=== PATIENT | female | born 1960 | race Caucasian/White ===

== ENCOUNTER 2017-05-08 16:03 | Inpatient (IN) | payer MEDICAID, SELFPAY | END 2017-05-12 09:05 | disposition home or self-care (01) | DRG 194 | PROVIDERS: Admitting Provider Internal Medicine Adolescent Medicine; Emergency Provider Emergency Medicine; Family Provider Family Medicine; Visit Provider Internal Medicine Adolescent Medicine | DX: J44.0 Chronic obstructive pulmonary disease with (acute) lower respiratory infection (principal); J14 Pneumonia due to Hemophilus influenzae; J44.1 Chronic obstructive pulmonary disease with (acute) exacerbation; Z72.0 Tobacco use; E11.9 Type 2 diabetes mellitus without complications; F10.20 Alcohol dependence, uncomplicated | CPT/HCPCS: 36415; 71010; 80048; 80053; 80202; 82962; 83605; 83880; 85025; 87040; 87070; 87184; 87205; 94640; 94760; 96365; 96367; 96375; 99284; J3370 ==

== ENCOUNTER 2017-11-07 18:23 | Observation (INO) ==
--- NOTE | 2017-11-07 19:18 | Emergency Department Note ---
ED Disposition Clinical Impression: COPD exacerbation, Elevated troponin Disposition: Still a Patient Condition on Discharge: Good Referrals: Rodolfo Mejia MD [Primary Care Provider] - - Critical Care Critical Care Time: No Attestation: On 11/07/17, the high probability of a clinically significant, sudden or life threatening deterioration of the following system(s) required my full and direct attention, intervention and personal management. The time I documented below is in addition to time spent performing reported procedures but includes the following listed in this critical care notation. Medical Decision Making - Fran Inquiry Pt receiving controlled substance: No Vital Signs: 11/07/17 18:30 11/07/17 18:43 11/07/17 19:16 Temperature 98.6 F 98.6 F Temperature Source Oral Oral Pulse Rate Pulse Rate [Right Radial] 99 H 95 H 89 Respiratory Rate 26 H 18 22 Blood Pressure [Right Arm] 142/79 123/71 115/70 Blood Pressure Mean [Right Arm] 100 88 85 Blood Pressure Source [Right Arm] Automatic Cuff Automatic Cuff Blood Pressure Position [Right Arm] Supine Sitting 02 Sat by Pulse Oximetry 95 95 94 L Oxygen Delivery Method Room Air Room Air Room Air 11/07/17 20:29 Temperature Temperature Source Pulse Rate 87 Pulse Rate [Right Radial] Respiratory Rate Blood Pressure [Right Arm] Blood Pressure Mean [Right Arm] Blood Pressure Source [Right Arm] Blood Pressure Position [Right Arm] 02 Sat by Pulse Oximetry Oxygen Delivery Method - Lab Data Lab Results 11/07/17 19:00: WBC 7.1, RBC 3.76 L, Hgb 11.6 L, Hct 35.2 L, MCV 93.5, MCH 30.8 , MCHC 33.0, RDW 13.1, Plt Count 238, MPV 7.5, Neut % (Auto) 59.2, Lymph % (Auto ) 32.7, Whitman % (Auto) 4.1, Eos % (Auto) 3.6, Baso % (Auto) 0.3, Neut # (Auto) 4.2, Lymph # (Auto) 2.3, Whitman # (Auto) 0.3, Eos # (Auto) 0.3, Baso # (Auto) 0.0 11/07/17 19:00: Sodium 132 L, Potassium 4.3, Chloride 97 L, Carbon Dioxide 27, Anion Gap 12.3, BUN 15, Creatinine 0.84, Estimated Creat Clear 78, Estimated GFR 69, Est GFR ( Amer) 84, Glucose 110 H, Calcium 9.5, Total Bilirubin 0.2, AST 29, ALT 30, Alkaline Phosphatase 85, Total Creatine Kinase 89, CK-MB ( CK-2) 1.5, CK-MB (CK-2) Rel Index 1.7, Troponin I 0.10 H, Total Protein 7.3, Albumin 3.4, Globulin 3.9 H, Albumin/Globulin Ratio 0.9 L 11/07/17 19:00: Lactic Acid 1.6 Result diagrams: 11/07/17 19:00 11/07/17 19:00 Orders (Tests/Meds): ED MEDICATIONS Discontinued Medications Generic Name Dose Route Start Last Admin Trade Name Freq PRN Reason Stop Dose Admin Albuterol/Ipratropium 3 ml 11/07/17 20:19 11/07/17 20:29 Duoneb 3ml Neb IH 11/07/17 20:20 3 ml ONCE ONE Administration Aspirin 324 mg 11/07/17 20:19 11/07/17 20:33 Aspirin 81mg Chewable Tablet PO 11/07/17 20:20 324 mg ONCE ONE Administration Methylprednisolone Sodium Succinate 125 mg 11/07/17 20:19 11/07/17 20:34 Solu-Medrol 125mg/2ml Vial IV 11/07/17 20:20 125 mg ONCE ONE Administration ORDERS Category Date Time Status Blood Culture Stat Micro 11/07/17 19:00 Received - Radiology Data #1 Image(s): Chest Image Reviewed: Yes I reviewed the patient's radiology image Chronic interstitial changes. No acute infiltrate. No change from prior. - ECG Data Tracing #1 EKG interpreted by Blair Baker MD: Rhythm: sinus Rate: 94 [place]: Left Ectopy: none Conduction: normal ST Segment Changes: none T Wave Changes: none Q Waves: none Poor R-wave progression Low voltage QRS No evidence of acute ischemia or injury Medical Decision Narrative: 8:00 PM: Troponin elevated. Prior troponins have been normal. Spoke with patient. She denies any chest discomfort except for a feeling of tightness in her airways with breathing. Denies any chest pressure or discomfort. States no history of cardiac disease and does not have a operator specialist communications, has not seen a operator specialist communications in the past. I have discussed the case with Dr. Casas for Dr. Mejia who agrees to admit the patient to the hospital. We discussed the patient's clinical information, including history, exam, laboratory and radiology results and ED course. Per hospital procedure, I will write temporary bridge inpatient orders on the patient. Specific orders requested by the admitting physician: Serial cardiac enzymes General Adult HPI - General Chief complaint: Shortness of Breath/Dyspnea Stated complaint: SOA Time Seen by Provider: 11/07/17 19:16 Mode of Arrival: Ambulatory Limitations: No Limitations Description of Symptoms (Recalled from ER Triage Doc. by RN): soa for three days and chest tightness - History of Present Illness HPI narrative: The patient says her COPD is acting up. For about 3 days she has had increased shortness of breath, wheezing. She says her cough is not changed in frequency and she is not producing sputum. No fever. Denies chest pain, says he just feels tight "from that stuff down in there". She is a smoker. She is not on home oxygen. She does use a nebulizer 4 times a day, states has had 4 treatments today. She is on prednisone 5 mg a day. She uses a Brio and Combivent inhalers. States that she could not get in to see her doctor while he was open, PCP is Dr. Mejia. - Related Data Home Medications Medication Instructions Recorded Confirmed albuterol sulfate 2.5 mg/3 mL CONTINUOUS NEBULIZATION 30 Days 09/11/17 (0.083 %) solution for nebulization #360 blood sugar diagnostic strips See Dose Instructions .ROUTE 09/11/17 .MEDSUPPLY 30 Days #50 each diazepam 10 mg tablet PO 30 Days #90 09/11/17 digoxin 250 mcg tablet PO 30 Days #30 09/11/17 fluticasone 100 mcg-vilanterol 25 INHALATION 30 Days #60 09/11/17 mcg/dose powder for inhalation fluticasone 200 mcg-vilanterol 25 1 inh INHALATION Q24H 09/11/17 mcg/dose powder for inhalation fluticasone 50 mcg/actuation nasal INTRANASAL 30 Days #16 09/11/17 spray,suspension furosemide 80 mg tablet 80 mg PO ONCE 09/11/17 insulin glargine (U-300) 300 SUB-Q 23 Days #9 09/11/17 unit/mL (1.5 mL) subcutaneous pen insulin lispro (U-100) 100 unit/mL SUB-Q 30 Days #15 09/11/17 subcutaneous pen ipratropium 20 mcg-albuterol 100 INHALATION 30 Days #4 09/11/17 mcg/actuation mist for inhalation metoclopramide 5 mg tablet PO 30 Days #120 09/11/17 pantoprazole 40 mg tablet,delayed PO 30 Days #30 09/11/17 release paroxetine 30 mg tablet PO 30 Days #30 09/11/17 promethazine 25 mg tablet PO 30 Days #60 09/11/17 tramadol 50 mg tablet 50 mg PO Q4-6H PRN 09/11/17 umeclidinium 62.5 mcg/actuation INHALATION 30 Days #30 09/11/17 blister powder for inhalation Allergies Allergy/AdvReac Type Severity Reaction Status Date / Time amoxicillin [AMOXICILLIN] Allergy Intermediate I-RASH Verified 11/07/17 18:37 azithromycin [AZITHROMYCIN] Allergy Intermediate I-RASH Verified 11/07/17 18:37 doxycycline [DOXYCYCLINE] Allergy Intermediate I-RASH Verified 11/07/17 18:37 levofloxacin [LEVOFLOXACIN] Allergy Intermediate NA-NAUSEA/V Verified 11/07/17 18:37 OMITING Penicillins [PENICILLINS] Allergy Intermediate I-RASH Verified 11/07/17 18:37 propoxyphene [PROPOXYPHENE] Allergy Intermediate NA-NAUSEA/V Verified 11/07/17 18:37 OMITING Sulfa (Sulfonamide Allergy Intermediate NA-NAUSEA/V Verified 11/07/17 18:37 Antibiotics) OMITING [SULFA (SULFONAMIDE ANTIBIOTICS)] trimethoprim [TRIMETHOPRIM] Allergy Intermediate NA-NAUSEA/V Verified 11/07/17 18:37 OMITING ibuprofen [IBUPROFEN] Allergy Mild NA-NAUSEA/V Verified 11/07/17 18:37 OMITING Quinolones [QUINOLONES] Allergy Unknown Verified 11/07/17 18:37 sulfamethoxazole Allergy Unknown Verified 11/07/17 18:37 [SULFAMETHOXAZOLE] [facility] History I have reviewed the patient's past medical history: Yes Medical History: Reports:: Chronic Obstructive Pulmonary Disease (COPD), Diabetes Mellitus Type 1 Denies:: Cancer, Diabetes Mellitus Type 2, Hyperlipidemia, Hypertension, MRSA Other Surgeries: Yes: Tubal Ligation Amputation: No Fractures: No - Social History Smoking Status: Current every day smoker Tobacco Type: cigarettes # Packs/Day (cigarettes): 2 #Yrs smoked (if former smoker): 0 Alcohol Intake: current Alcohol Intake Frequency:: 0-2 drinks per day Substance Use Type: denies use - Psychiatric History Expresses thoughts of harming self/others: None Suicide Plan Description: No Plan Family Hx:: Non-contributory ROS Obtained: Yes All systems reviewed & no additional complaints - Cardiovascular Cardiovascular: Denies chest pain, Denies leg edema - Respiratory Respiratory: Yes chest congestion, No cough, Yes dyspnea, No coughing up blood - Gastrointestinal Gastrointestingal: Denies: diarrhea, vomiting Physical Exam - General General appearance: alert, in no apparent distress - Head Head exam: atraumatic, normocephalic, normal inspection - Eye Eye exam: Present: normal appearance, PERRL, EOMI - ENT ENT exam: Present: normal exam, normal oropharynx, mucous membranes moist, TM's normal bilaterally, normal external ear exam - Neck Neck exam: Present: normal inspection, full ROM, trachea midline. Absent: meningismus, lymphadenopathy - Chest Chest inspection: Present: normal inspection, symmetric chest wall rise. Absent : tenderness - Respiratory Respiratory exam: Present: wheezes. Absent: respiratory distress - Cardiovascular Cardiovascular exam: Present: regular rate, normal rhythm. Absent: JVD - Abdominal Exam Abdominal exam: Present: soft, normal bowel sounds. Absent: distention, tenderness, guarding - Extremities Exam Extremities exam: Present: normal inspection, full ROM, normal capillary refill. Absent: calf tenderness - Back Exam Back exam: Present: normal inspection. Absent: tenderness - Neurological Exam Neurological exam: Present: alert, oriented X3 - Psychiatric Psychiatric exam: Present: normal affect, normal mood - Skin Skin exam: Present: warm, dry, intact, normal color - Lymphatic Lymphatic Findings: no adenopathy
[2017-11-07 19:22] LABS: Basophils % 0.3 % (0.1-2.0); Eosinophils # 0.3 K/mm3 (0.0-0.4); Eosinophils % 3.6 % (0.1-12.0); Hematocrit 35.2 % (37.0-47.0); Hemoglobin 11.6 g/dL (12.2-16.2); Lymphocytes # 2.3 K/mm3 (0.7-4.5); Lymphocytes % 32.7 K/mm3 (10-50); Mean Corpuscular Hemoglobin 30.8 pg (27.0-31.2); Mean Corpuscular Volume 93.5 fl (81-99); Mean Platelet Volume 7.5 fl (7.4-10.4); Monocytes # 0.3 K/mm3 (0.1-1.0); Monocytes % 4.1 % (1.7-9.3); Neutrophils # 4.2 K/mm3 (1.8-7.8); Neutrophils % 59.2 % (37.0-80.0); Platelet Count 238 K/mm3 (142-424); Red Blood Count 3.76 M/mm3 (4.20-5.40); Red Cell Distribution Width 13.1 % (11.5-17.5); White Blood Count 7.1 K/mm3 (4.8-10.8)
[2017-11-07 19:43] LABS: Albumin Level 3.4 gm/dL (3.4-5.0); Albumin/Globulin Ratio 0.9 (1.1-1.8); Anion Gap 12.3 mEq/L (5-15); Bilirubin,Total 0.2 mg/dL (0.2-1.0); Calcium 9.5 mg/dL (8.5-10.1); Globulin 3.9 gm/dl (1.3-3.2); Potassium 4.3 mmoL/L (3.5-5.1); Total Protein,Serum 7.3 gm/dL (6.4-8.2)
--- NOTE | 2017-11-08 06:27 | H&P/Discharge Summary ---
General - General Admission date: 11/07/17 Discharge date: 11/08/17 *Admission Date: 11/07/17 *Chief complaint: Cough and chest congestion *History of present illness: 57-year-old female with history of COPD and diabetes presented to the emergency department with 3 days of cough and increasing chest congestion. Workup was rather unremarkable except for a troponin in the indeterminate range. Once this was discovered patient was questions further on her symptoms and she repeatedly denied chest pain, chest heaviness, discomfort in the jaw or neck, discomfort radiating into the left arm. Because of the abnormal troponin she was admitted for a mild COPD exacerbation and kept overnight for serial troponins. She denies fevers, chills, abdominal pain, back pain. [facility] History Medical History: Reports:: Congestive Heart Failure, Chronic Obstructive Pulmonary Disease (COPD), Diabetes Mellitus Type 2, Hyperlipidemia Denies:: Cancer, Hypertension, MRSA Other Medical History: Reports: Sinus Problems Laterality Cases: Left: Partial Knee Replacement Other Surgeries: Yes: Colonoscopy, Tubal Ligation, Other (LEFT KNEE) Amputation: No Fractures: No - *Social History Educational Level: Attended High School Smoking Status: Current every day smoker Tobacco Type: cigarettes # Packs/Day (cigarettes): 1 #Yrs smoked (if former smoker): 0 Alcohol Intake: current Alcohol Intake Frequency:: 0-2 drinks per day Substance Use Type: denies use Occupational Status: employed, disabled Housing: house Household Members: family - Psychiatric History Expresses thoughts of harming self/others: None Suicide Plan Description: No Plan *Family Hx:: Asthma, Cancer, Coronary Artery Disease, Diabetes, Heart Attack, Hyperlipidemia, Hypertension, Stroke, Thyroid Disorder Review of Systems - Review of Systems Review of systems:: pertinent systems reviewed and negative unless documented below Exam Vital signs and Labs for Last 24 Hours: Temp Pulse Resp BP Pulse Ox 98.5 F 90 20 108/52 90 L 11/08/17 04:00 11/08/17 04:00 11/08/17 04:00 11/08/17 04:00 11/08/17 04:00 Laboratory Results - last 24 hr 11/07/17 22:58: POC Glucose 215 H 11/08/17 00:25: Troponin I 0.07 H 11/08/17 04:10: Troponin I 0.06 I & O for Last 24 hours: Intake & Output 04/11/06/17 11/07/17 11/08/17 11:59 11:59 11:59 11:59 Weight 158 lb 7 oz Narrative: Female appears older than her stated age. Oropharynx is moist and she is edentulous. Neck is without lymphadenopathy or carotid bruits. Lungs this morning had faint expiratory wheezes without rales. Heart has a regular rate and rhythm. Abdomen is soft, nontender, nondistended. Extremities are without edema. Hospital Course Hospital Course: She was admitted and had serial troponins performed overnight which gradually trended down. Because her troponins trended down she was discharged home the following morning and will follow up in my office on November 13. She will be treated for COPD exacerbation as an outpatient. Outpatient stress testing will be performed in the future Results Labs on day of discharge: Labs from last 24 hours 11/08/17 11/08/17 11/07/17 04:10 00:25 22:58 POC Glucose 215 H Troponin I 0.06 0.07 H DS: Diagnosis - Discharge Diagnosis (1) COPD exacerbation Status: Acute (2) Elevated troponin Status: Acute Discharge Medications Discharge Medications: Home Medications Medication Instructions Recorded Confirmed Type albuterol sulfate 2.5 mg/3 mL CONTINUOUS NEBULIZATION 30 Days 09/11/17 History (0.083 %) solution for nebulization #360 blood sugar diagnostic strips See Dose Instructions .ROUTE 09/11/17 History .MEDSUPPLY 30 Days #50 each diazepam 10 mg tablet PO 30 Days #90 09/11/17 History digoxin 250 mcg tablet PO 30 Days #30 09/11/17 History fluticasone 100 mcg-vilanterol 25 INHALATION 30 Days #60 09/11/17 History mcg/dose powder for inhalation fluticasone 200 mcg-vilanterol 25 1 inh INHALATION Q24H 09/11/17 History mcg/dose powder for inhalation fluticasone 50 mcg/actuation nasal INTRANASAL 30 Days #16 09/11/17 History spray,suspension furosemide 80 mg tablet 80 mg PO ONCE 09/11/17 History insulin glargine (U-300) 300 SUB-Q 23 Days #9 09/11/17 History unit/mL (1.5 mL) subcutaneous pen insulin lispro (U-100) 100 unit/mL SUB-Q 30 Days #15 09/11/17 History subcutaneous pen ipratropium 20 mcg-albuterol 100 INHALATION 30 Days #4 09/11/17 History mcg/actuation mist for inhalation metoclopramide 5 mg tablet PO 30 Days #120 09/11/17 History pantoprazole 40 mg tablet,delayed PO 30 Days #30 09/11/17 History release paroxetine 30 mg tablet PO 30 Days #30 09/11/17 History promethazine 25 mg tablet PO 30 Days #60 09/11/17 History tramadol 50 mg tablet 50 mg PO Q4-6H PRN 09/11/17 History umeclidinium 62.5 mcg/actuation INHALATION 30 Days #30 09/11/17 History blister powder for inhalation Disposition Disposition: Home, Self-Care
== END 2017-11-08 08:50 | disposition home or self-care (01) ==
LOC: 2ND 18:23 → ER 18:23 → 2ND 22:54
PROVIDERS: ADMIT Emergency Medicine; ATTEND Family Medicine

== ENCOUNTER 2018-05-24 17:23 | Inpatient (IN) ==
[2018-05-24 18:23] LABS: Basophils % 0.2 % (0.1-2.0); Eosinophils # 0.3 K/mm3 (0.0-0.4); Eosinophils % 1.5 % (0.1-12.0); Hematocrit 43.2 % (37.0-47.0); Hemoglobin 13.8 g/dL (12.2-16.2); Lymphocytes # 2.2 K/mm3 (0.7-4.5); Lymphocytes % 13.2 K/mm3 (10-50); Mean Corpuscular HGB Conc 31.9 g/dL (31.8-35.4); Mean Corpuscular Hemoglobin 31.4 pg (27.0-31.2); Mean Corpuscular Volume 98.4 fl (81-99); Mean Platelet Volume 7.5 fl (7.4-10.4); Monocytes # 0.4 K/mm3 (0.1-1.0); Monocytes % 2.6 % (1.7-9.3); Neutrophils # 13.8 K/mm3 (1.8-7.8); Neutrophils % 82.5 % (37.0-80.0); Platelet Count 152 K/mm3 (142-424); Red Blood Count 4.39 M/mm3 (4.20-5.40); Red Cell Distribution Width 13.6 % (11.5-17.5); White Blood Count 16.7 K/mm3 (4.8-10.8)
[2018-05-24 18:26] LABS: Acetone, Serum (Rapid) None Detected (None Detect)
[2018-05-24 18:34] LABS: Alanine Aminotransferase 22 U/L (12-78); Albumin Level 3.3 gm/dL (3.4-5.0); Albumin/Globulin Ratio 0.9 (1.1-1.8); Alkaline Phosphatase 75 U/L (46-116); Amylase 55 U/L (25-125); Anion Gap 16.5 mEq/L (5-15); Aspartate Amino Transferase 21 U/L (15-37); Bilirubin,Total 0.6 mg/dL (0.2-1.0); Blood Urea Nitrogen 24 mg/dL (7-18); Calcium 8.8 mg/dL (8.5-10.1); Carbon Dioxide 23 mmol/L (21.0-32.0); Chloride 98 mmol/L (98-107); Globulin 3.8 gm/dl (1.3-3.2); Glucose 75 mg/dL (74-106); Lipase 52 u/L (73-393); Potassium 5.5 mmoL/L (3.5-5.1); Sodium 132 mmol/L (136-145); Total Protein,Serum 7.1 gm/dL (6.4-8.2)
[2018-05-24 18:42] LABS: Eosinophils % 2 % (0-3); Lymphocytes % 13 % (10-50); Monocytes % 6 % (2-9); Neutrophils % 70 % (42-76); RBC Morphology Normal; Total Cells Counted 100
[2018-05-24 19:23] LABS: VBG Base Excess -5.6 mmol/L (-2.4-2.3); VBG HCO3 21.7 mmol/L (23-30); VBG Oxygen Saturation 57.3 % (50-70); VBG PH 7.25 mmol/L (7.31-7.41); VBG PO2 32.8 mmol/L (28-40); VBG Total CO2 23.2 mmol/L (23-27)
--- NOTE | 2018-05-24 19:30 | Emergency Department Note ---
ED Disposition Clinical Impression: Septic shock Community acquired pneumonia Qualifiers: Laterality: left Lung location: lower lobe of lung Qualified Code(s): J18.1 - Lobar pneumonia, unspecified organism Disposition: Still a Patient Condition on Discharge: Serious Referrals: Rodolfo Mejia MD [Primary Care Provider] - - Critical Care Critical Care Time: Yes Attestation: On 05/24/18, the high probability of a clinically significant, sudden or life threatening deterioration of the following system(s) required my full and direct attention, intervention and personal management. The time I documented below is in addition to time spent performing reported procedures but includes the following listed in this critical care notation. Total Critical Care Time: 40 Vital system(s) involved:: Shock (Septic) My critical care processes included: Assessment & monitoring of V/S, Initial and Re-exams, Data Review/Interpretation, Coordinating Care, Medication Orders and management, Documentation Medical Decision Making - Fran Inquiry Pt receiving controlled substance: No Vital Signs: 05/24/18 17:26 05/24/18 17:56 05/24/18 20:02 Temperature 97.9 F Temperature Source Oral Pulse Rate [Left Radial] 89 116 H 120 H Respiratory Rate 22 15 Blood Pressure [Right Arm] 119/103 H 86/45 L 77/48 L Blood Pressure Mean [Right Arm] 108 58 57 Blood Pressure Source [Right Arm] Automatic Cuff Automatic Cuff Blood Pressure Position [Right Arm] Supine Supine 02 Sat by Pulse Oximetry 96 95 91 L Oxygen Delivery Method Room Air Room Air Oxygen Flow Rate (LPM) 05/24/18 20:08 05/24/18 20:30 05/24/18 21:21 Temperature 99.1 F Temperature Source Oral Pulse Rate [Left Radial] 120 H 126 H Respiratory Rate 15 16 Blood Pressure [Right Arm] 90/47 L 121/44 L Blood Pressure Mean [Right Arm] 61 69 Blood Pressure Source [Right Arm] Manual Cuff/ Auscultation Automatic Cuff Blood Pressure Position [Right Arm] Supine 02 Sat by Pulse Oximetry 92 L 94 L Oxygen Delivery Method Nasal Cannula Nasal Cannula Oxygen Flow Rate (LPM) 2 2 05/24/18 21:30 Temperature Temperature Source Pulse Rate [Left Radial] 128 H Respiratory Rate 18 Blood Pressure [Right Arm] 101/62 L Blood Pressure Mean [Right Arm] 75 Blood Pressure Source [Right Arm] Automatic Cuff Blood Pressure Position [Right Arm] Supine 02 Sat by Pulse Oximetry 96 Oxygen Delivery Method Nasal Cannula Oxygen Flow Rate (LPM) 2 - Lab Data Lab Results 05/24/18 18:05: WBC 16.7 H, RBC 4.39, Hgb 13.8, Hct 43.2, MCV 98.4, MCH 31.4 H, MCHC 31.9, RDW 13.6, Plt Count 152, MPV 7.5, Neut % (Auto) 82.5 H, Lymph % (Auto) 13.2, [place] % (Auto) 2.6, Eos % (Auto) 1.5, Baso % (Auto) 0.2, Neut # (Au to) 13.8 H, Lymph # (Auto) 2.2, [place] # (Auto) 0.4, Eos # (Auto) 0.3, Baso # (Auto) 0.0, Total Counted 100, Neutrophils % (Manual) 70, Band Neutrophils % 6.0, Lymphocytes % (Manual) 13, Atypical Lymphs % 3.0, Monocytes % (Manual) 6, Eosinophils % (Manual) 2, Platelet Estimate Normal, RBC Morphology Normal 05/24/18 18:05: Sodium 132 L, Potassium 5.5 H, Chloride 98, Carbon Dioxide 23, Anion Gap 16.5 H, BUN 24 H, Creatinine 2.23 H, Estimated Creat Clear 25, Estimated GFR 22 L, Est GFR ( Amer) 27 L, Glucose 75, Calcium 8.8, Total Bilirubin 0.6, AST 21, ALT 22, Alkaline Phosphatase 75, Troponin I < 0.02, Total Protein 7.1, Albumin 3.3 L, Globulin 3.8 H, Albumin/Globulin Ratio 0.9 L, Amylase 55, Lipase 52 L, Acetone Level None detected 05/24/18 19:21: VBG pH 7.25 L, VBG pCO2 51.0, VBG pO2 32.8, VBG HCO3 21.7 L, VBG Total CO2 23.2, VBG O2 Saturation 57.3, VBG Base Excess -5.6 L 05/24/18 19:40: Lactate 4.7 H 05/24/18 19:45: Influenza Type A Ag Negative, Influenza Type B Ag Negative 05/24/18 19:54: Specimen Source R/r, O2 % R/a, ABG pH 7.36, ABG pCO2 33.6 L, ABG pO2 66.3 L, ABG HCO3 18.3 L, ABG Total CO2 19.4 L, ABG O2 Saturation 93, ABG Base Excess -7.2 L, Lan Test Y 05/24/18 20:21: Urine Color Yellow, Urine Appearance Clear, Urine pH 5.0, Ur Specific [place] 1.025, Urine Protein Negative, Urine Glucose (UA) Negative, Urine Ketones Negative, Urine Blood Negative, Urine Nitrate Negative, Urine Bilirubin Negative, Urine Urobilinogen 0.2, Ur Leukocyte Esterase Trace, Urine WBC 3-5, Amorphous Sediment 1+, Urine Mucus 2+ Result diagrams: 05/24/18 18:05 05/24/18 18:05 Orders (Tests/Meds): ED MEDICATIONS Generic Name Dose Route Start Last Admin Trade Name Freq PRN Reason Stop Dose Admin Sodium Chloride 1,770 mls @ 885 mls/hr 05/24/18 20:54 05/24/18 20:54 Sod Chlor 0.9% 1000ml Bag 30 ml/kg infuse over 2 hr (1770 ml) 05/24/18 22:53 885 mls/hr IV Administration .Q2H ONE Ertapenem 1 gm/ Sodium 50 mls @ 100 mls/hr 05/24/18 21:45 Chloride IV 06/07/18 21:44 Q24H CELIO Protocol Discontinued Medications Generic Name Dose Route Start Last Admin Trade Name Freq PRN Reason Stop Dose Admin Sodium Chloride 1,000 mls @ 999 mls/hr 05/24/18 20:15 05/24/18 20:02 Sod Chlor 0.9% 1000ml Bag IV 05/24/18 21:15 999 mls/hr .Q1H1M CELIO Administration Lactated Ringer's 1,000 mls @ 999 mls/hr 05/24/18 19:00 05/24/18 19:00 Lactated Ringer's 1000 Ml Bag IV 05/24/18 20:00 999 mls/hr .Q1H1M CELIO Administration ORDERS Category Date Time Status XR chest portable Stat Exams 05/24/18 19:32 Taken Diarrhea Panel, PCR Stat Lab 05/24/18 19:41 Ordered Urinalysis and Microscopic Stat Lab 05/24/18 20:21 Ordered Blood Culture Stat Micro 05/24/18 20:04 Ordered ABG [Arterial Blood Gas] Stat RT 05/24/18 19:40 Ordered Venous Blood Gas Stat RT 05/24/18 20:04 Ordered 12-lead EKG Request [ECG Request by /Meredith] Stat Y 05/24/18 18:14 Ordered - ECG Data Tracing #1 EKG interpreted by Blair Baker MD: Rhythm: sinus tachycardia Rate: 115 [place]: normal Ectopy: none Conduction: normal ST Segment Changes: none T Wave Changes: none Q Waves: Inferior - new No evidence of acute ischemia or injury Baseline wander present, but I consider the EKG adequate for accurate interpretation. Low voltage QRS - old Prior electrocardiagrams reviewed. - Physician Consults Physician Consulted: Kiki Mejia Time: 21:30 Reason -: Admission Comment/Response: Agrees to admit the patient to the hospital. We discussed the patient's clinical information, including history, exam, laboratory and radiology results and ED course. Per hospital procedure, I will write temporary bridge inpatient orders on the patient. Specific orders requested by the admitting physician: Consulted pharmacy regarding antibiotic choice given numerous allergies. They recommend Invanz monotherapy. Continue sepsis protocol. - Tissue Perfus/Sepsis Re-Eval Reperfusion Exam Performed: Yes Date Performed: 05/24/18 Time Performed: 21:43 Sepsis Follow-Up: Yes: Respiratory exam, Cardiovascular exam, Capillary refill, Peripheral pulse strength, Peripheral pulse location, Skin exam, Vital Signs General Adult HPI - General Chief complaint: Nausea/Vomiting/Diarrhea Stated complaint: sugar dropped,vomiting Time Seen by Provider: 05/24/18 19:00 Mode of Arrival: Wheelchair Limitations: No Limitations Description of Symptoms (Recalled from ER Triage Doc. by RN): Nausea, diarrhea, low blood sugar, fever up to 101. Not able to keep things down. Daughter states she has been disoriented and falling around today - History of Present Illness HPI narrative: Patient says she has not felt well all week, but daughter says she has been sick since last night with vomiting, diarrhea, fever and chills. Temperature up to 101 degrees. She has some cough. Denies rhinorrhea or sore throat. Denies u rinary symptoms. Denies abdominal pain. Has diabetes, blood sugar has been on the low side. - Related Data Home Medications Medication Instructions Recorded Confirmed albuterol sulfate 2.5 mg/3 mL CONTINUOUS NEBULIZATION 30 Days 09/11/17 (0.083 %) solution for nebulization #360 blood sugar diagnostic strips See Dose Instructions .ROUTE 09/11/17 .MEDSUPPLY 30 Days #50 each diazepam 10 mg tablet PO 30 Days #90 09/11/17 digoxin 250 mcg tablet PO 30 Days #30 09/11/17 fluticasone 100 mcg-vilanterol 25 INHALATION 30 Days #60 09/11/17 mcg/dose powder for inhalation fluticasone 200 mcg-vilanterol 25 1 inh INHALATION Q24H 09/11/17 mcg/dose powder for inhalation fluticasone 50 mcg/actuation nasal INTRANASAL 30 Days #16 09/11/17 spray,suspension furosemide 80 mg tablet 80 mg PO ONCE 09/11/17 insulin glargine (U-300) conc. 300 SUB-Q 23 Days #9 09/11/17 unit/mL (1.5 mL) subcutaneous pen insulin lispro (U- 100) 100 SUB-Q 30 Days #15 09/11/17 unit/mL subcutaneous pen ipratropium 20 mcg-albuterol 100 INHALATION 30 Days #4 09/11/17 mcg/actuation mist for inhalation metoclopramide 5 mg tablet PO 30 Days #120 09/11/17 pantoprazole 40 mg tablet,delayed PO 30 Days #30 09/11/17 release paroxetine 30 mg tablet PO 30 Days #30 09/11/17 promethazine 25 mg tablet PO 30 Days #60 09/11/17 tramadol 50 mg tablet 50 mg PO Q4-6H PRN 09/11/17 umeclidinium 62.5 mcg/actuation INHALATION 30 Days #30 09/11/17 blister powder for inhalation Previous Rx's Medication Instructions Recorded predniSONE [Prednisone 20mg 20 mg PO DAILY #10 tab 11/08/17 Tab] Allergies Allergy/AdvReac Type Severity Reaction Status Date / Time amoxicillin [AMOXICILLIN] Allergy Intermediate I-RASH Verified 02/25/18 12:49 azithromycin [AZITHROMYCIN] Allergy Intermediate I-RASH Verified 02/25/18 12:49 doxycycline [DOXYCYCLINE] Allergy Intermediate I-RASH Verified 02/25/18 12:49 levofloxacin [LEVOFLOXACIN] Allergy Intermediate NA-NAUSEA/V Verified 02/25/18 12:49 OMITING Penicillins [PENICILLINS] Allergy Intermediate I-RASH Verified 02/25/18 12:49 propoxyphene [PROPOXYPHENE] Allergy Intermediate NA-NAUSEA/V Verified 02/25/18 12:49 OMITING Sulfa (Sulfonamide Allergy Intermediate NA-NAUSEA/V Verified 02/25/18 12:49 Antibiotics) OMITING [SULFA (SULFONAMIDE ANTIBIOTICS)] trimethoprim [TRIMETHOPRIM] Allergy Intermediate NA-NAUSEA/V Verified 02/25/18 12:49 OMITING ibuprofen [IBUPROFEN] Allergy Mild NA-NAUSEA/V Verified 02/25/18 12:49 OMITING Quinolones [QUINOLONES] Allergy Unknown Verified 02/25/18 12:49 sulfamethoxazole Allergy Unknown Verified 02/25/18 12:49 [SULFAMETHOXAZOLE] [facility] History I have reviewed the patient's past medical history: Yes Medical History: Reports:: Congestive Heart Failure, Chronic Obstructive Pulmonary Disease (COPD), Diabetes Mellitus Type 2, Hyperlipidemia Denies:: Cancer, Diabetes Mellitus Type 1, Hypertension, Internal Pacemaker, MRSA Other Medical History: Reports: Sinus Problems Other Surgeries: Yes: Colonoscopy, Tubal Ligation, Other. No: Pacemaker Amputation: No Fractures: No - Social History Educational Level: Attended High School Smoking Status: Current every day smoker Tobacco Type: cigarettes # Packs/Day (cigarettes): 1 #Yrs smoked (if former smoker): 0 Alcohol Intake: never Alcohol Intake Frequency:: 0-2 drinks per day Substance Use Type: denies use Occupational Status: employed, disabled Housing: house Household Members: family - Psychiatric History Expresses thoughts of harming self/others: None Suicide Plan Description: No Plan Family Hx:: Asthma, Cancer, Coronary Artery Disease, Diabetes, Heart Attack, Hyperlipidemia, Hypertension, Stroke, Thyroid Disorder ROS Obtained: Yes All systems reviewed & no additional complaints - Constitutional Constitutional: Reports chills, Reports fatigue, Reports fever(s), Reports malaise, Reports weakness - ENT Ears, Nose, Mouth, and Throat: Denies otalgia, Denies nasal discharge, Denies sore throat - Cardiovascular Cardiovascular: Denies chest pain - Respiratory Respiratory: Yes cough, No dyspnea - Gastrointestinal Gastrointestingal: Reports: diarrhea, vomiting. Denies: abdominal pain - Genitourinary Female Genitourinary: Denies dysuria, Denies flank pain Physical Exam - General General appearance: alert - Head Head exam: atraumatic, normocephalic - Eye Eye exam: Present: normal appearance, PERRL, EOMI - ENT ENT exam: Present: mucous membranes moist - Chest Chest inspection: Present: normal inspection, symmetric chest wall rise - Respiratory Respiratory exam: Present: normal lung sounds bilaterally. Absent: respiratory distress - Cardiovascular Cardiovascular exam: Present: normal rhythm, tachycardia, normal heart sounds - Abdominal Exam Abdominal exam: Present: soft. Absent: distention, tenderness, guarding, rebound, rigidity - Extremities Exam Extremities exam: Present: normal inspection, full ROM - Neurological Exam Neurological exam: Present: alert, oriented X3 - Psychiatric Psychiatric exam: Present: normal affect, normal mood - Skin Skin exam: Present: warm, dry. Absent: rash
[2018-05-24 19:55] LABS: ABG Base Excess -7.2 mmol/L (-2.4-2.3); ABG HCO3 18.3 mmhg (22.0-26.0); ABG Oxygen Saturation 93 % (90-100); ABG PCO2 33.6 mmhg (35.0-45.0); ABG PH 7.36 mmol/L (7.35-7.45); ABG PO2 66.3 mmhg (80-100); ABG TCO2 19.4 mmhg (23-27)
[2018-05-24 20:12] LABS: Allen's Test Y; Oxygen R/A %
[2018-05-24 20:37] LABS: Microscopic, Urine URINE MICROSCOPIC (MICROSCOPIC)
[2018-05-24 21:09] LABS: Appearance,Urine CLEAR (Clear); Blood, Urine Negative (Negative); Color,Urine YELLOW (Yellow); Glucose,Urine (UA) Negative (Negative); Ketones,Urine Negative (Negative); Leukocyte Esterase,Urine TRACE (Negative); Protein,Urine Negative (Negative); Specific Gravity, Urine 1.025 (1.005-1.030); Urobilinogen,Urine 0.2 EU/dl (0.2)
[2018-05-24 21:17] LABS: Amorphous Sediment,Urine 1+ /lpf; Bilirubin,Urine Negative (Negative); Mucus,Urine 2+ /lpf
[2018-05-25 05:55] LABS: Basophils % 0.2 % (0.1-2.0); Eosinophils # 0.2 K/mm3 (0.0-0.4); Eosinophils % 1.6 % (0.1-12.0); Hematocrit 40.2 % (37.0-47.0); Hemoglobin 12.5 g/dL (12.2-16.2); Lymphocytes # 2.1 K/mm3 (0.7-4.5); Lymphocytes % 16.1 K/mm3 (10-50); Mean Corpuscular HGB Conc 31.2 g/dL (31.8-35.4); Mean Corpuscular Hemoglobin 30.9 pg (27.0-31.2); Mean Platelet Volume 7.3 fl (7.4-10.4); Monocytes # 0.6 K/mm3 (0.1-1.0); Monocytes % 4.2 % (1.7-9.3); Neutrophils # 10.4 K/mm3 (1.8-7.8); Neutrophils % 77.9 % (37.0-80.0); Platelet Count 117 K/mm3 (142-424); Red Blood Count 4.05 M/mm3 (4.20-5.40); Red Cell Distribution Width 13.6 % (11.5-17.5); White Blood Count 13.3 K/mm3 (4.8-10.8)
[2018-05-25 06:05] LABS: Anion Gap 13.9 mEq/L (5-15); Potassium 5.9 mmoL/L (3.5-5.1)
[2018-05-25 06:06] LABS: Calcium 7.5 mg/dL (8.5-10.1)
--- NOTE | 2018-05-25 07:07 | History & Physical Report ---
*Admission Date: 05/25/18 *Chief complaint: Vomiting and diarrhea *History of present illness: 57-year-old female with COPD and diabetes mellitus presented to the emergency department with her daughter with complaint of vomiting and diarrhea along with fevers. This morning due to the patient's condition the history is taken from the daughter. Daughter states on Friday evening her mother complained of some nausea and then began vomiting. She continued to have vomiting throughout the night Friday night into Friday morning along with onset of diarrhea. Symptoms persisted into the afternoon on Friday. Simultaneously she began experiencing increase in wheezing. Patient appeared weekend and was getting confused according to the daughter. She brought her to the emergency department. In the emergency department workup was begun. Patient met criteria for sepsis and was found to have a left lower lobe pneumonia on. Patient received fluid bolus and was placed on Invanz and admitted to the stepdown unit. This morning patient's blood pressures have improved. She remains tachycardic. She is requiring supplemental oxygen. Patient's daughter is at bedside. [facility] History I have reviewed the patient's past medical history: Yes Medical History: Reports:: Chronic Obstructive Pulmonary Disease (COPD), Diabetes Mellitus Type 2, Hyperlipidemia Denies:: Cancer, Diabetes Mellitus Type 1, Hypertension, Internal Pacemaker, MRSA Other Medical History: Reports: Arthritis (osteo), Cataracts, Sinus Problems Comment: Chronic back pain Other Surgeries: Yes: Colonoscopy, Tubal Ligation, Other (plurisey). No: Pacemaker Amputation: No Fractures: No - *Social History Educational Level: Attended High School Smoking Status: Current every day smoker Tobacco Type: cigarettes # Packs/Day (cigarettes): 1 #Yrs smoked (if former smoker): 43 Alcohol Intake: current Alcohol Intake Frequency:: a few times a week Substance Use Type: denies use Occupational Status: disabled Housing: house Household Members: family - Psychiatric History Expresses thoughts of harming self/others: None Suicide Plan Description: No Plan *Family Hx:: Asthma, Cancer, Coronary Artery Disease, Diabetes, Heart Attack, Hyperlipidemia, Hypertension, Stroke, Thyroid Disorder Review of Systems - Review of Systems Review of systems:: unable to obtain - *Neurologic Reports weakness Meds Home Medications Medication Instructions Recorded Confirmed Type albuterol sulfate 2.5 mg/3 mL 2.5 ml CONTINUOUS NEBULIZATION QID 09/11/17 05/24/18 History (0.083 %) solution for nebulization PRN 30 Days #360 diazepam 10 mg tablet 10 mg PO BID PRN 30 Days #90 09/11/17 05/24/18 History digoxin 250 mcg tablet 250 mcg PO DAILY 30 Days #30 09/11/17 05/24/18 History fluticasone 100 mcg-vilanterol 25 1 puff INHALATION DAILY 30 Days #60 09/11/17 05/24/18 History mcg/dose powder for inhalation fluticasone 200 mcg-vilanterol 25 1 inh INHALATION Q24H 09/11/17 05/24/18 History mcg/dose powder for inhalation fluticasone 50 mcg/actuation nasal 2 spray INTRANASAL DAILY 30 Days 09/11/17 05/24/18 History spray,suspension #16 furosemide 80 mg tablet 40 mg PO DAILY 09/11/17 05/24/18 History ipratropium 20 mcg-albuterol 100 2 puff INHALATION DAILY 30 Days #4 09/11/17 05/24/18 History mcg/actuation mist for inhalation metoclopramide 5 mg tablet 5 mg PO ACHS 30 Days #120 09/11/17 05/24/18 History pantoprazole 40 mg tablet,delayed 40 mg PO DAILY 30 Days #30 09/11/17 05/24/18 History release paroxetine 30 mg tablet 30 mg PO DAILY 30 Days #30 09/11/17 05/24/18 History promethazine 25 mg tablet 25 mg PO Q6 PRN 30 Days #60 09/11/17 05/24/18 History tramadol 50 mg tablet 50 mg PO Q4-6H PRN 09/11/17 05/24/18 History umeclidinium 62.5 mcg/actuation 2 puffs INHALATION DAILY 30 Days 09/11/17 05/24/18 History blister powder for inhalation #30 Allergies Allergy/AdvReac Type Severity Reaction Status Date / Time amoxicillin [AMOXICILLIN] Allergy Intermediate I-RASH Verified 02/25/18 12:49 azithromycin [AZITHROMYCIN] Allergy Intermediate I-RASH Verified 02/25/18 12:49 doxycycline [DOXYCYCLINE] Allergy Intermediate I-RASH Verified 02/25/18 12:49 levofloxacin [LEVOFLOXACIN] Allergy Intermediate NA-NAUSEA/V Verified 02/25/18 12:49 OMITING Penicillins [PENICILLINS] Allergy Intermediate I-RASH Verified 02/25/18 12:49 propoxyphene [PROPOXYPHENE] Allergy Intermediate NA-NAUSEA/V Verified 02/25/18 12:49 OMITING Sulfa (Sulfonamide Allergy Intermediate NA-NAUSEA/V Verified 02/25/18 12:49 Antibiotics) OMITING [SULFA (SULFONAMIDE ANTIBIOTICS)] trimethoprim [TRIMETHOPRIM] Allergy Intermediate NA-NAUSEA/V Verified 02/25/18 12:49 OMITING ibuprofen [IBUPROFEN] Allergy Mild NA-NAUSEA/V Verified 02/25/18 12:49 OMITING Quinolones [QUINOLONES] Allergy Unknown Verified 02/25/18 12:49 sulfamethoxazole Allergy Unknown Verified 02/25/18 12:49 [SULFAMETHOXAZOLE] Exam Vital signs and Labs for Last 24 Hours: Temp Pulse Resp BP Pulse Ox 97.4 F L 123 H 22 121/52 L 96 05/25/18 04:00 05/25/18 06:09 05/25/18 04:00 05/25/18 04:00 05/25/18 06:09 Laboratory Results - last 24 hr 05/24/18 18:05: WBC 16.7 H, RBC 4.39, Hgb 13.8, Hct 43.2, MCV 98.4, MCH 31.4 H, MCHC 31.9, RDW 13.6, Plt Count 152, MPV 7.5, Neut % (Auto) 82.5 H, Lymph % (Auto) 13.2, [place] % (Auto) 2.6, Eos % (Auto) 1.5, Baso % (Auto) 0.2, Neut # (Auto) 13.8 H, Lymph # (Auto) 2.2, [place] # (Auto) 0.4, Eos # (Auto) 0.3, Baso # (Auto) 0.0, Total Counted 100, Neutrophils % (Manual) 70, Band Neutrophils % 6.0, Lymphocytes % (Manual) 13, Atypical Lymphs % 3.0, Monocytes % (Manual) 6, Eosinophils % (Manual) 2, Platelet Estimate Normal, RBC Morphology Normal 05/24/18 18:05: Sodium 132 L, Potassium 5.5 H, Chloride 98, Carbon Dioxide 23, Anion Gap 16.5 H, BUN 24 H, Creatinine 2.23 H, Estimated Creat Clear 25, Estimated GFR 22 L, Est GFR ( Amer) 27 L, Glucose 75, Calcium 8.8, Total Bilirubin 0.6, AST 21, ALT 22, Alkaline Phosphatase 75, Troponin I < 0.02, Total Protein 7.1, Albumin 3.3 L, Globulin 3.8 H, Albumin/Globulin Ratio 0.9 L, Amylase 55, Lipase 52 L, Acetone Level None detected 05/24/18 19:21: VBG pH 7.25 L, VBG pCO2 51.0, VBG pO2 32.8, VBG HCO3 21.7 L, VBG Total CO2 23.2, VBG O2 Saturation 57.3, VBG Base Excess -5.6 L 05/24/18 19:40: Lactate 4.7 H 05/24/18 19:45: Influenza Type A Ag Negative, Influenza Type B Ag Negative 05/24/18 19:54: Specimen Source R/r, O2 % R/a, ABG pH 7.36, ABG pCO2 33.6 L, ABG pO2 66.3 L, ABG HCO3 18.3 L, ABG Total CO2 19.4 L, ABG O2 Saturation 93, ABG Base Excess -7.2 L, Lan Test Y 05/24/18 20:21: Urine Color Yellow, Urine Appearance Clear, Urine pH 5.0, Ur Specific [place] 1.025, Urine Protein Negative, Urine Glucose (UA) Negative, Urine Ketones Negative, Urine Blood Negative, Urine Nitrate Negative, Urine Bilirubin Negative, Urine Urobilinogen 0.2, Ur Leukocyte Esterase Trace, Urine WBC 3-5, Amorphous Sediment 1+, Urine Mucus 2+ 05/25/18 00:00: Lactate 3.2 H 05/25/18 01:00: POC Glucose 61 L 05/25/18 01:33: POC Glucose 80 05/25/18 02:30: Lactate 2.8 H 05/25/18 05:20: WBC 13.3 H, RBC 4.05 L, Hgb 12.5, Hct 40.2, MCV 99.0, MCH 30.9, MCHC 31.2 L, RDW 13.6, Plt Count 117 L, MPV 7.3 L, Neut % (Auto) 77.9, Lymph % (Auto) 16.1, [place] % (Auto) 4.2, Eos % (Auto) 1.6, Baso % (Auto) 0.2, Neut # (Auto) 10.4 H, Lymph # (Auto) 2.1, [place] # (Auto) 0.6, Eos # (Auto) 0.2, Baso # (Auto) 0.0 05/25/18 05:20: Sodium 134 L, Potassium 5.9 H, Chloride 105, Carbon Dioxide 21, Anion Gap 13.9, BUN 17 D, Creatinine 1.26 H D, Estimated Creat Clear 54, Estimated GFR 43 L, Est GFR ( Amer) 53 L D, Glucose 116 H D, Calcium 7.5 L D 05/25/18 05:33: POC Glucose 107 I & O for Last 24 hours: Intake & Output 05/22/18 05/23/18 05/24/18 05/25/18 12:59 12:59 11:59 11:59 Intake Total 4622 / 4622 Output Total 900 / 900 Balance 3722 / 3722 Weight 156 lb Narrative: Patient is laying in bed with mild tachypnea. Nasal cannula is in place. She will open her eyes to verbal and tactile stimulus but cannot answer questions. Oropharynx is moist. Neck is without lymphadenopathy. Pupils are reactive to light. Lungs have diffuse expiratory wheezes mixed with rhonchi along with rales and rhonchi in the left lung base. Heart has a tachycardic rate and rhythm. Abdomen is soft with mild epigastric tenderness. Bowel sounds are present. Extremities are warm to the touch with good capillary refill. Rehman catheter is in place Assessment and Plan (1) Community acquired pneumonia Current visit: Yes Status: Acute Qualifiers: Laterality: left Lung location: lower lobe of lung Qualified Code(s): J18.1 - Lobar pneumonia, unspecified organism Category: Medical Code(s): J18.9 - Pneumonia, unspecified organism (2) Septic shock Current visit: Yes Status: Acute Category: Medical Code(s): A41.9 - Sepsis, unspecified organism; R65.21 - Severe sepsis with septic shock (3) Hyperkalemia Current visit: Yes Status: Acute Category: Medical Code(s): E87.5 - Hyperkalemia (4) Diabetes mellitus with hypoglycemia Current visit: Yes Status: Acute Category: Medical Code(s): E11.649 - Type 2 diabetes mellitus with hypoglycemia without coma (5) COPD exacerbation Current visit: No Status: Acute Category: Medical Code(s): J44.1 - Chronic obstructive pulmonary disease with (acute) exacerbation - Assessment and plan all Dx Assessment and Plan for all problems:: 1. Continue IV fluids along with broad-spectrum and IV antibiotics of Invanz and vancomycin. Vancomycin will be added this morning 2. Await diarrhea panel 3. Monitor potassium daily 4. Continue Solu-Medrol and duo nebs for COPD exacerbation 5. Monitor glucose via fingersticks. I have discontinued sliding scale insulin coverage at this time. This can be restarted should patient become significantly hypoglycemic 6. Patient is already shown improvement in blood pressure as well as her acute kidney injury 7. I did explain to the daughter the patient is quite sick and the confusion that she witnessed prior to admission to the hospital could take a few days to resolve due to the level of her illness.
--- NOTE | 2018-05-25 07:21 | Pharmacy Consult Notes ---
[facility] Pharmacy VTE Monitoring - Patient Demographics Admission date: 05/24/18 Report Date: 05/25/18 Time: 07:21 Allergies/Adverse Reactions: Patient Allergies amoxicillin [AMOXICILLIN] Allergy (Intermediate, Verified 02/25/18 12:49) I-RASH azithromycin [AZITHROMYCIN] Allergy (Intermediate, Verified 02/25/18 12:49) I-RASH doxycycline [DOXYCYCLINE] Allergy (Intermediate, Verified 02/25/18 12:49) I-RASH levofloxacin [LEVOFLOXACIN] Allergy (Intermediate, Verified 02/25/18 12:49) NA-NAUSEA/VOMITING Penicillins [PENICILLINS] Allergy (Intermediate, Verified 02/25/18 12:49) I-RASH propoxyphene [PROPOXYPHENE] Allergy (Intermediate, Verified 02/25/18 12:49) NA-NAUSEA/VOMITING Sulfa (Sulfonamide Antibiotics) [SULFA (SULFONAMIDE ANTIBIOTICS)] Allergy (Intermediate, Verified 02/25/18 12:49) NA-NAUSEA/VOMITING trimethoprim [TRIMETHOPRIM] Allergy (Intermediate, Verified 02/25/18 12:49) NA-NAUSEA/VOMITING ibuprofen [IBUPROFEN] Allergy (Mild, Verified 02/25/18 12:49) NA-NAUSEA/VOMITING Quinolones [QUINOLONES] Allergy (Unknown, Verified 02/25/18 12:49) sulfamethoxazole [SULFAMETHOXAZOLE] Allergy (Unknown, Verified 02/25/18 12:49) Height: 1.65 m Weight: 70.76 kg Patient Problems: Current Active Problems Community acquired pneumonia (Acute) Septic shock (Acute) Hyperkalemia (Acute) Diabetes mellitus with hypoglycemia (Acute) - VTE Risk Labs: VTE Related Lab Results Hgb 12.5 g/dL (12.2-16.2) 05/25/18 05:20 Hct 40.2 % (37.0-47.0) 05/25/18 05:20 Plt Count 117 K/mm3 (142-424) L 05/25/18 05:20 BUN 17 mg/dL (7-18) D 05/25/18 05:20 Creatinine 1.26 mg/dL (0.55-1.02) H D 05/25/18 05:20 Estimated Creat Clear 54 mL/min (0-300) 05/25/18 05:20 Was VTE Risk Assessment Performed: Yes VTE Score: 5 VTE Risk Level: Low Risk - Prophylaxis VTE Prophylaxis Ordered?: Yes Types of VTE Prophylaxis: TEDS Knee High Location of Applied Device: Bilateral Lower Extremeties - VTE Diagnosis Confirmed Treatment or plan recommended: Continue Current Treatment
--- NOTE | 2018-05-25 09:05 | Pharmacy Consult Notes ---
- Pharmacy Consult Date: 05/25/18 Time: 09:02 Referring provider: DARIEN Reason for Consult:: PHARMACY CONSULTED TO DOSE AND MANAGE VANCOMYCIN THERAPY Allergies and ADEs:: Allergies Allergy/AdvReac Type Severity Reaction Status Date / Time amoxicillin [AMOXICILLIN] Allergy Intermediate I-RASH Verified 02/25/18 12:49 azithromycin [AZITHROMYCIN] Allergy Intermediate I-RASH Verified 02/25/18 12:49 doxycycline [DOXYCYCLINE] Allergy Intermediate I-RASH Verified 02/25/18 12:49 levofloxacin [LEVOFLOXACIN] Allergy Intermediate NA-NAUSEA/V Verified 02/25/18 12:49 OMITING Penicillins [PENICILLINS] Allergy Intermediate I-RASH Verified 02/25/18 12:49 propoxyphene [PROPOXYPHENE] Allergy Intermediate NA-NAUSEA/V Verified 02/25/18 12:49 OMITING Sulfa (Sulfonamide Allergy Intermediate NA-NAUSEA/V Verified 02/25/18 12:49 Antibiotics) OMITING [SULFA (SULFONAMIDE ANTIBIOTICS)] trimethoprim [TRIMETHOPRIM] Allergy Intermediate NA-NAUSEA/V Verified 02/25/18 12:49 OMITING ibuprofen [IBUPROFEN] Allergy Mild NA-NAUSEA/V Verified 02/25/18 12:49 OMITING Quinolones [QUINOLONES] Allergy Unknown Verified 02/25/18 12:49 sulfamethoxazole Allergy Unknown Verified 02/25/18 12:49 [SULFAMETHOXAZOLE] Home Medications:: Home Medications Medication Instructions Recorded Confirmed Type albuterol sulfate 2.5 mg/3 mL 2.5 ml CONTINUOUS NEBULIZATION QID 09/11/17 05/24/18 History (0.083 %) solution for nebulization PRN 30 Days #360 diazepam 10 mg tablet 10 mg PO BID PRN 30 Days #90 09/11/17 05/24/18 History digoxin 250 mcg tablet 250 mcg PO DAILY 30 Days #30 09/11/17 05/24/18 History fluticasone 100 mcg-vilanterol 25 1 puff INHALATION DAILY 30 Days #60 09/11/17 05/24/18 History mcg/dose powder for inhalation fluticasone 200 mcg-vilanterol 25 1 inh INHALATION Q24H 09/11/17 05/24/18 History mcg/dose powder for inhalation fluticasone 50 mcg/actuation nasal 2 spray INTRANASAL DAILY 30 Days 09/11/17 05/24/18 History spray,suspension #16 furosemide 80 mg tablet 40 mg PO DAILY 09/11/17 05/24/18 History ipratropium 20 mcg-albuterol 100 2 puff INHALATION DAILY 30 Days #4 09/11/17 05/24/18 History mcg/actuation mist for inhalation metoclopramide 5 mg tablet 5 mg PO ACHS 30 Days #120 09/11/17 05/24/18 History pantoprazole 40 mg tablet,delayed 40 mg PO DAILY 30 Days #30 09/11/17 05/24/18 History release paroxetine 30 mg tablet 30 mg PO DAILY 30 Days #30 09/11/17 05/24/18 History promethazine 25 mg tablet 25 mg PO Q6 PRN 30 Days #60 09/11/17 05/24/18 History tramadol 50 mg tablet 50 mg PO Q4-6H PRN 09/11/17 05/24/18 History umeclidinium 62.5 mcg/actuation 2 puffs INHALATION DAILY 30 Days 09/11/17 05/24/18 History blister powder for inhalation #30 Height: 1.65 m Weight: 70.76 kg Laboratory Results:: Laboratory Results - last 24 hr 05/24/18 18:05: WBC 16.7 H, RBC 4.39, Hgb 13.8, Hct 43.2, MCV 98.4, MCH 31.4 H, MCHC 31.9, RDW 13.6, Plt Count 152, MPV 7.5, Neut % (Auto) 82.5 H, Lymph % (Auto) 13.2, [place] % (Auto) 2.6, Eos % (Auto) 1.5, Baso % (Auto) 0.2, Neut # (Auto) 13.8 H, Lymph # (Auto) 2.2, [place] # (Auto) 0.4, Eos # (Auto) 0.3, Baso # (Auto) 0.0, Total Counted 100, Neutrophils % (Manual) 70, Band Neutrophils % 6.0, Lymphocytes % (Manual) 13, Atypical Lymphs % 3.0, Monocytes % (Manual) 6, Eosinophils % (Manual) 2, Platelet Estimate Normal, RBC Morphology Normal 05/24/18 18:05: Sodium 132 L, Potassium 5.5 H, Chloride 98, Carbon Dioxide 23, Anion Gap 16.5 H, BUN 24 H, Creatinine 2.23 H, Estimated Creat Clear 25, Estimated GFR 22 L, Est GFR ( Amer) 27 L, Glucose 75, Calcium 8.8, Total Bilirubin 0.6, AST 21, ALT 22, Alkaline Phosphatase 75, Troponin I < 0.02, Total Protein 7.1, Albumin 3.3 L, Globulin 3.8 H, Albumin/Globulin Ratio 0.9 L, Amylase 55, Lipase 52 L, Acetone Level None detected 05/24/18 19:21: VBG pH 7.25 L, VBG pCO2 51.0, VBG pO2 32.8, VBG HCO3 21.7 L, VBG Total CO2 23.2, VBG O2 Saturation 57.3, VBG Base Excess -5.6 L 05/24/18 19:40: Lactate 4.7 H 05/24/18 19:45: Influenza Type A Ag Negative, Influenza Type B Ag Negative 05/24/18 19:54: Specimen Source R/r, O2 % R/a, ABG pH 7.36, ABG pCO2 33.6 L, ABG pO2 66.3 L, ABG HCO3 18.3 L, ABG Total CO2 19.4 L, ABG O2 Saturation 93, ABG Base Excess -7.2 L, Lan Test Y 05/24/18 20:21: Urine Color Yellow, Urine Appearance Clear, Urine pH 5.0, Ur Specific [place] 1.025, Urine Protein Negative, Urine Glucose (UA) Negative, Urine Ketones Negative, Urine Blood Negative, Urine Nitrate Negative, Urine Bilirubin Negative, Urine Urobilinogen 0.2, Ur Leukocyte Esterase Trace, Urine WBC 3-5, Amorphous Sediment 1+, Urine Mucus 2+ 05/25/18 00:00: Lactate 3.2 H 05/25/18 01:00: POC Glucose 61 L 05/25/18 01:33: POC Glucose 80 05/25/18 02:30: Lactate 2.8 H 05/25/18 05:20: WBC 13.3 H, RBC 4.05 L, Hgb 12.5, Hct 40.2, MCV 99.0, MCH 30.9, MCHC 31.2 L, RDW 13.6, Plt Count 117 L, MPV 7.3 L, Neut % (Auto) 77.9, Lymph % (Auto) 16.1, [place] % (Auto) 4.2, Eos % (Auto) 1.6, Baso % (Auto) 0.2, Neut # (Auto) 10.4 H, Lymph # (Auto) 2.1, [place] # (Auto) 0.6, Eos # (Auto) 0.2, Baso # (Auto) 0.0 05/25/18 05:20: Sodium 134 L, Potassium 5.9 H, Chloride 105, Carbon Dioxide 21, Anion Gap 13.9, BUN 17 D, Creatinine 1.26 H D, Estimated Creat Clear 54, Es timated GFR 43 L, Est GFR ( Amer) 53 L D, Glucose 116 H D, Calcium 7.5 L D 05/25/18 05:33: POC Glucose 107 Medical History: Reports:: Congestive Heart Failure, Chronic Obstructive Pulmonary Disease (COPD), Diabetes Mellitus Type 2, Hyperlipidemia Denies:: Cancer, Diabetes Mellitus Type 1, Hypertension, Internal Pacemaker, MRSA Assessment and Plan (1) Community acquired pneumonia Current visit: Yes Status: Acute Qualifiers: Laterality: left Lung location: lower lobe of lung Qualified Code(s): J18.1 - Lobar pneumonia, unspecified organism Category: Medical Code(s): J18.9 - Pneumonia, unspecified organism (2) Septic shock Current visit: Yes Status: Acute Category: Medical Code(s): A41.9 - Sepsis, unspecified organism; R65.21 - Severe sepsis with septic shock (3) Hyperkalemia Current visit: Yes Status: Acute Category: Medical Code(s): E87.5 - Hyperkalemia (4) Diabetes mellitus with hypoglycemia Current visit: Yes Status: Acute Category: Medical Code(s): E11.649 - Type 2 diabetes mellitus with hypoglycemia without coma (5) COPD exacerbation Current visit: No Status: Acute Category: Medical Code(s): J44.1 - Chronic obstructive pulmonary disease with (acute) exacerbation - Assessment and plan all Dx Assessment and Plan for all problems:: *History of present illness: 57-year-old female with COPD and diabetes mellitus presented to the emergency department with her daughter with complaint of vomiting and diarrhea along with fevers. This morning due to the patient's condition the history is taken from the daughter. Daughter states on Friday evening her mother complained of some nausea and then began vomiting. She continued to have vomiting throughout the night Friday night into Friday morning along with onset of diarrhea. Symptoms persisted into the afternoon on Friday. Simultaneously she began experiencing increase in wheezing. Patient appeared weekend and was getting confused according to the daughter. She brought her to the emergency department. In the emergency department workup was begun. Patient met criteria for sepsis and was found to have a left lower lobe pneumonia on. Patient received fluid bolus and was placed on Invanz and admitted to the stepdown unit. PCP CONSULTED PHARMACY TO START VANCOMYCIN THIS AM. WILL BEGIN VANCOMYCIN 1500MG IVPB EVERY 24 HOURS BASED ON PATIENTS RENAL FUNCTION. WILL FOLLOW DAILY AND ADJUST ACCORDING TO PATIENT CONDITION, LABS AND THERAPEUTIC LEVELS. THANKS YOU FOR CONSULT.
[2018-05-26 07:06] LABS: Eosinophils % 0.1 % (0.1-12.0); Hematocrit 33.2 % (37.0-47.0); Hemoglobin 10.3 g/dL (12.2-16.2); Lymphocytes # 0.3 K/mm3 (0.7-4.5); Mean Corpuscular HGB Conc 31.1 g/dL (31.8-35.4); Mean Corpuscular Volume 99.8 fl (81-99); Mean Platelet Volume 7.8 fl (7.4-10.4); Monocytes # 0.1 K/mm3 (0.1-1.0); Monocytes % 1.9 % (1.7-9.3); Neutrophils # 5.6 K/mm3 (1.8-7.8); Neutrophils % 92.9 % (37.0-80.0); Platelet Count 104 K/mm3 (142-424); Red Blood Count 3.33 M/mm3 (4.20-5.40); Red Cell Distribution Width 13.7 % (11.5-17.5); White Blood Count 6.1 K/mm3 (4.8-10.8)
[2018-05-26 07:12] LABS: Anion Gap 13.7 mEq/L (5-15); Calcium 7.8 mg/dL (8.5-10.1); Potassium 4.7 mmoL/L (3.5-5.1)
--- NOTE | 2018-05-26 07:12 | Progress Note ---
Internal Medicine - PN: Subj *Date: 05/26/18 *Time: 07:08 Interval history: 57 year old female admitted with pneumonia and sepsis. Comfortably resting in bed with family member sleeping at side. Oriented to person and place this morning. Complaints include arthralgias and wanting to go home. Exam Vital signs and Labs for Last 24 Hours: Temp Pulse Resp BP Pulse Ox 98.3 F 106 H 14 108/50 L 94 L 05/26/18 00:00 05/26/18 06:00 05/26/18 04:00 05/26/18 06:00 05/26/18 06:00 Laboratory Results - last 24 hr 05/25/18 11:41: POC Glucose 159 H 05/25/18 17:27: POC Glucose 298 H 05/25/18 20:18: POC Glucose 391 H* 05/26/18 02:28: POC Glucose 316 H* 05/26/18 05:37: POC Glucose 305 H* I & O for Last 24 hours: Intake & Output 05/24/18 05/24/18 05/25/18 05/26/18 00:59 23:59 23:59 23:59 Intake Total 1222 / 1222 911 / 911 Output Total 2600 / 2600 750 / 750 Balance -1378 / -1378 161 / 161 Weight 155 lb 15.985 oz 163 lb - *Routine HEENT Exam Head: Present: normocephalic, atraumatic Eye: Present: PERRL ENT: Present: mucous membranes moist - *Routine Respiratory Exam Comments: expiratory wheezes with rhonchi, prominent in left lower base, congested cough auscultated - *Routine Cardiovascular Exam Present: RRR, tachycardia - *Routine Abdominal Exam Present: soft, normoactive bowel sounds - *Routine Exam Comments: richard catheter in place - *Routine Neurological Exam Present: alert oriented to person and place Assessment and Plan (1) Community acquired pneumonia Current visit: Yes Status: Acute Qualifiers: Laterality: left Lung location: lower lobe of lung Qualified Code(s): J18.1 - Lobar pneumonia, unspecified organism Category: Medical Code(s): J18.9 - Pneumonia, unspecified organism (2) Septic shock Current visit: Yes Status: Acute Category: Medical Code(s): A41.9 - Sepsis, unspecified organism; R65.21 - Severe sepsis with septic shock (3) Hyperkalemia Current visit: Yes Status: Acute Category: Medical Code(s): E87.5 - Hyperkalemia (4) Diabetes mellitus with hypoglycemia Current visit: Yes Status: Acute Category: Medical Code(s): E11.649 - Type 2 diabetes mellitus with hypoglycemia without coma (5) COPD exacerbation Current visit: No Status: Acute Category: Medical Code(s): J44.1 - Chronic obstructive pulmonary disease with (acute) exacerbation - Assessment and plan all Dx Assessment and Plan for all problems:: Incentive spirometer Q1hour while awake, physical therapy to evaluate and treat, DC richard catheter, decreased steroids, and patient will come out of step down unit.
[2018-05-26 08:18] LABS: Lymphocytes % 4 % (10-50); Monocytes % 3 % (2-9); Neutrophils % 93 % (42-76); Total Cells Counted 100
[2018-05-27 06:30] LABS: Anion Gap 14.9 mEq/L (5-15); Calcium 7.8 mg/dL (8.5-10.1); Potassium 4.9 mmoL/L (3.5-5.1)
[2018-05-27 06:31] LABS: Hemoglobin 9.5 g/dL (12.2-16.2); Mean Corpuscular HGB Conc 31.5 g/dL (31.8-35.4); Mean Corpuscular Hemoglobin 31.2 pg (27.0-31.2); Mean Corpuscular Volume 98.9 fl (81-99); Mean Platelet Volume 7.7 fl (7.4-10.4); Neutrophils % 90.5 % (37.0-80.0); Platelet Count 90 K/mm3 (142-424); Red Blood Count 3.03 M/mm3 (4.20-5.40)
[2018-05-27 06:32] LABS: Eosinophils % 0.3 % (0.1-12.0); Lymphocytes # 0.3 K/mm3 (0.7-4.5); Lymphocytes % 6.5 % (10-50); Monocytes # 0.1 K/mm3 (0.1-1.0); Monocytes % 2.7 % (1.7-9.3); Neutrophils # 4.5 K/mm3 (1.8-7.8)
--- NOTE | 2018-05-27 06:43 | Progress Note ---
Internal Medicine - PN: Subj *Date: 05/27/18 *Time: 06:41 Interval history: Patient did well throughout the day yesterday but overnight had a drop in O2 sats to the 80s that required a temporary increase in her flow of supplemental oxygen. After breathing treatment patient's wheezing improved and she has been weaned down to 2 L of oxygen via nasal cannula. This morning the patient reports no complaints. Exam Vital signs and Labs for Last 24 Hours: Temp Pulse Resp BP Pulse Ox 98.5 F 109 H 17 120/66 98 05/27/18 04:00 05/27/18 05:33 05/27/18 04:00 05/27/18 04:00 05/27/18 05:33 Laboratory Results - last 24 hr 05/26/18 06:52: WBC 6.1 D, RBC 3.33 L, Hgb 10.3 L, Hct 33.2 L, MCV 99.8 H, MCH 31.0, MCHC 31.1 L, RDW 13.7, Plt Count 104 L, MPV 7.8, Neut % (Auto) 92.9 H, Lymph % (Auto) 5.0 L, [place] % (Auto) 1.9, Eos % (Auto) 0.1, Baso % (Auto) 0.0 L, Neut # (Auto) 5.6, Lymph # (Auto) 0.3 L, [place] # (Auto) 0.1, Eos # (Auto) 0.0, Baso # (Auto) 0.0, Total Counted 100, Neutrophils % (Manual) 93 H, Lymphocytes % (Manual) 4 L, Monocytes % (Manual) 3, Platelet Estimate Moderate decrease 05/26/18 06:52: Sodium 136, Potassium 4.7 D, Chloride 106, Carbon Dioxide 21, Anion Gap 13.7, BUN 22 H D, Creatinine 1.36 H, Estimated Creat Clear 52, Estimated GFR 40 L, Est GFR ( Amer) 48 L, Glucose 312 H, Calcium 7.8 L 05/26/18 11:08: POC Glucose 297 H 05/26/18 14:37: POC Glucose 384 H* 05/26/18 16:20: POC Glucose 353 H* 05/26/18 20:58: POC Glucose 237 H 05/27/18 05:15: WBC 5.0, RBC 3.03 L, Hgb 9.5 L, Hct 30.0 L, MCV 98.9, MCH 31.2, MCHC 31.5 L, RDW 14.0, Plt Count 90 L, MPV 7.7, Neut % (Auto) 90.5 H, Lymph % (Auto) 6.5 L, [place] % (Auto) 2.7, Eos % (Auto) 0.3, Baso % (Auto) 0.0 L, Neut # (Auto) 4.5, Lymph # (Auto) 0.3 L, [place] # (Auto) 0.1, Eos # (Auto) 0.0, Baso # (Auto) 0.0 05/27/18 05:15: Sodium 139, Potassium 4.9, Chloride 108 H, Carbon Dioxide 21, Anion Gap 14.9, BUN 29 H D, Creatinine 1.05 H D, Estimated Creat Clear 67, Estimated GFR 54 L, Est GFR ( Amer) 65 D, Glucose 184 H D, Calcium 7.8 L 05/27/18 05:54: POC Glucose 166 H I & O for Last 24 hours: Intake & Output 05/24/18 05/25/18 05/26/18 05/27/18 11:59 11:59 11:59 11:59 Intake Total 4622 / 4622 1511 / 1511 2848 / 2848 Output Total 900 / 900 2450 / 2450 700 / 700 Balance 3722 / 3722 -939 / -939 2148 / 2148 Weight 156 lb 163 lb Microbiology Reports for the Last 24 Hours: Microbiology 05/24/18 19:40 Blood Blood Culture - Preliminary NO GROWTH AFTER 48 HOURS 05/24/18 19:40 Blood Blood Culture - Preliminary NO GROWTH AFTER 48 HOURS Narrative: She awakens easily and answers questions but falls back asleep. Oropharynx is moist. Neck is without lymphadenopathy. Lungs have diffuse expiratory wheezes. Heart rate is tachycardic. Abdomen is soft Assessment and Plan (1) Community acquired pneumonia Current visit: Yes Status: Acute Qualifiers: Laterality: left Lung location: lower lobe of lung Qualified Code(s): J18.1 - Lobar pneumonia, unspecified organism Category: Medical Code(s): J18.9 - Pneumonia, unspecified organism (2) Septic shock Current visit: Yes Status: Acute Category: Medical Code(s): A41.9 - Sepsis, unspecified organism; R65.21 - Severe sepsis with septic shock (3) Hyperkalemia Current visit: Yes Status: Acute Category: Medical Code(s): E87.5 - Hyperkalemia (4) Diabetes mellitus with hypoglycemia Current visit: Yes Status: Acute Category: Medical Code(s): E11.649 - Type 2 diabetes mellitus with hypoglycemia without coma (5) COPD exacerbation Current visit: No Status: Acute Category: Medical Code(s): J44.1 - Chronic obstructive pulmonary disease with (acute) exacerbation - Assessment and plan all Dx Assessment and Plan for all problems:: 1. Patient has more wheezing this morning compared to yesterday so I will increase her steroids and continue the duo nebs 2. I have talked with her nurse, and once the patient is more awake I have asked her to give her a home dose of Valium as I am concerned the patient may begin withdrawing from benzos as it is nearing 48 hours and she has had Valium or the Xanax that was ordered in the hospital. 3. Restart a long-acting insulin as she is having hyperglycemia from steroids
[2018-05-27 08:47] LABS: Lymphocytes % 7 % (10-50); Monocytes % 2 % (2-9); Neutrophils % 91 % (42-76); Total Cells Counted 100
[2018-05-27 08:48] LABS: RBC Morphology Normal
--- NOTE | 2018-05-27 09:33 | Pharmacy Consult Notes ---
- Pharmacy Consult Date: 05/27/18 Time: 09:31 Referring provider: DR. CORONA Reason for Consult:: VANCOMYCIN TROUGH LEVEL AND DOSE CHANGE Allergies and ADEs:: Allergies Allergy/AdvReac Type Severity Reaction Status Date / Time amoxicillin [AMOXICILLIN] Allergy Intermediate I-RASH Verified 02/25/18 12:49 azithromycin [AZITHROMYCIN] Allergy Intermediate I-RASH Verified 02/25/18 12:49 doxycycline [DOXYCYCLINE] Allergy Intermediate I-RASH Verified 02/25/18 12:49 levofloxacin [LEVOFLOXACIN] Allergy Intermediate NA-NAUSEA/V Verified 02/25/18 12:49 OMITING Penicillins [PENICILLINS] Allergy Intermediate I-RASH Verified 02/25/18 12:49 propoxyphene [PROPOXYPHENE] Allergy Intermediate NA-NAUSEA/V Verified 02/25/18 12:49 OMITING Sulfa (Sulfonamide Allergy Intermediate NA-NAUSEA/V Verified 02/25/18 12:49 Antibiotics) OMITING [SULFA (SULFONAMIDE ANTIBIOTICS)] trimethoprim [TRIMETHOPRIM] Allergy Intermediate NA-NAUSEA/V Verified 02/25/18 12:49 OMITING ibuprofen [IBUPROFEN] Allergy Mild NA-NAUSEA/V Verified 02/25/18 12:49 OMITING Quinolones [QUINOLONES] Allergy Unknown Verified 02/25/18 12:49 sulfamethoxazole Allergy Unknown Verified 02/25/18 12:49 [SULFAMETHOXAZOLE] Home Medications:: Home Medications Medication Instructions Recorded Confirmed Type diazepam 10 mg tablet 10 mg PO TIDP PRN 30 Days #90 09/11/17 05/25/18 History digoxin 250 mcg tablet 250 mcg PO DAILY 30 Days #30 09/11/17 05/24/18 History fluticasone 100 mcg-vilanterol 25 1 puff INHALATION DAILY 30 Days #60 09/11/17 05/24/18 History mcg/dose powder for inhalation fluticasone 50 mcg/actuation nasal 1 spray INTRANASAL DAILY 30 Days 09/11/17 05/25/18 History spray,suspension #16 furosemide 80 mg tablet 80 mg PO DAILYP PRN 09/11/17 05/25/18 History ipratropium 20 mcg-albuterol 100 1 puff INHALATION QID 30 Days #4 09/11/17 05/25/18 History mcg/actuation mist for inhalation metoclopramide 5 mg tablet 5 mg PO ACHS 30 Days #120 09/11/17 05/24/18 History pantoprazole 40 mg tablet,delayed 40 mg PO DAILY 30 Days #30 09/11/17 05/24/18 History release paroxetine 30 mg tablet 30 mg PO DAILY 30 Days #30 09/11/17 05/24/18 History promethazine 25 mg tablet 25 mg PO BIDP PRN 30 Days #60 09/11/17 05/25/18 History umeclidinium 62.5 mcg/actuation 1 puff INHALATION DAILY 30 Days #30 09/11/17 05/25/18 History blister powder for inhalation Insulin Degludec [Tresiba 25 unit SQ HS 05/25/18 05/25/18 History Flextouch U-200] Insulin Lispro [Humalog Kwikpen 25 unit SQ AC 05/25/18 05/25/18 History U-100] Montelukast Sodium [Montelukast 10 mg PO HS 05/25/18 05/25/18 History 10mg Tab] predniSONE [Prednisone 5mg 5 mg PO DAILY 05/25/18 05/25/18 History Tab] Tramadol HCl [Ultram 50mg 100 mg PO Q8HP PRN 05/26/18 05/26/18 History tablet] Height: 1.65 m Weight: 73.936 kg Laboratory Results:: Laboratory Results - last 24 hr 05/26/18 11:08: POC Glucose 297 H 05/26/18 14:37: POC Glucose 384 H* 05/26/18 16:20: POC Glucose 353 H* 05/26/18 20:58: POC Glucose 237 H 05/27/18 05:15: WBC 5.0, RBC 3.03 L, Hgb 9.5 L, Hct 30.0 L, MCV 98.9, MCH 31.2, MCHC 31.5 L, RDW 14.0, Plt Count 90 L, MPV 7.7, Neut % (Auto) 90.5 H, Lymph % (Auto) 6.5 L, [place] % (Auto) 2.7, Eos % (Auto) 0.3, Baso % (Auto) 0.0 L, Neut # (Auto) 4.5, Lymph # (Auto) 0.3 L, [place] # (Auto) 0.1, Eos # (Auto) 0.0, Baso # (Auto) 0.0, Total Counted 100, Neutrophils % (Manual) 91 H, Lymphocytes % (Manual) 7 L, Monocytes % (Manual) 2, Platelet Estimate Moderate decrease, RBC Morphology Normal 05/27/18 05:15: Sodium 139, Potassium 4.9, Chloride 108 H, Carbon Dioxide 21, Anion Gap 14.9, BUN 29 H D, Creatinine 1.05 H D, Estimated Creat Clear 67, Estimated GFR 54 L, Est GFR ( Amer) 65 D, Glucose 184 H D, Calcium 7.8 L 05/27/18 05:54: POC Glucose 166 H 05/27/18 08:15: Vancomycin Trough 8.3 L Medical History: Reports:: Congestive Heart Failure, Chronic Obstructive Pulmonary Disease (COPD), Diabetes Mellitus Type 2, Hyperlipidemia Denies:: Cancer, Diabetes Mellitus Type 1, Hypertension, Internal Pacemaker, MRSA Assessment and Plan (1) Community acquired pneumonia Current visit: Yes Status: Acute Qualifiers: Laterality: left Lung location: lower lobe of lung Qualified Code(s): J18.1 - Lobar pneumonia, unspecified organism Category: Medical Code(s): J18.9 - Pneumonia, unspecified organism (2) Septic shock Current visit: Yes Status: Acute Category: Medical Code(s): A41.9 - Sepsis, unspecified organism; R65.21 - Severe sepsis with septic shock (3) Hyperkalemia Current visit: Yes Status: Acute Category: Medical Code(s): E87.5 - Hyperkalemia (4) Diabetes mellitus with hypoglycemia Current visit: Yes Status: Acute Category: Medical Code(s): E11.649 - Type 2 diabetes mellitus with hypoglycemia without coma (5) COPD exacerbation Current visit: No Status: Acute Category: Medical Code(s): J44.1 - Chronic obstructive pulmonary disease with (acute) exacerbation - Assessment and plan all Dx Assessment and Plan for all problems:: PATIENT'S VANCOMYCIN TROUGH LEVEL WAS 8.3 MCG/ML PRIOR TO 3RD DOSE TODAY. RECOMMEND CHANGING DOSE FROM VANCOMYCIN 1500 MG Q24H TO 1000 MG Q12. PHARMACY WILL FOLLOW DAILY AND ADJUST APPROPRIATE. LIZZY BURTON, PHARM
[2018-05-28 06:20] LABS: Eosinophils % 0.3 % (0.1-12.0); Hematocrit 29.6 % (37.0-47.0); Hemoglobin 9.4 g/dL (12.2-16.2); Lymphocytes # 0.4 K/mm3 (0.7-4.5); Lymphocytes % 8.3 % (10-50); Mean Corpuscular HGB Conc 31.7 g/dL (31.8-35.4); Mean Corpuscular Hemoglobin 31.3 pg (27.0-31.2); Mean Corpuscular Volume 98.7 fl (81-99); Mean Platelet Volume 7.6 fl (7.4-10.4); Monocytes # 0.2 K/mm3 (0.1-1.0); Monocytes % 4.3 % (1.7-9.3); Platelet Count 104 K/mm3 (142-424); Red Cell Distribution Width 14.2 % (11.5-17.5); White Blood Count 4.6 K/mm3 (4.8-10.8)
[2018-05-28 06:26] LABS: Anion Gap 15.3 mEq/L (5-15); Calcium 7.9 mg/dL (8.5-10.1); Potassium 4.3 mmoL/L (3.5-5.1)
--- NOTE | 2018-05-28 07:05 | Progress Note ---
Internal Medicine - PN: Subj *Date: 05/28/18 *Time: 07:03 Interval history: Patient tells me she feels better and she would like to be discharged. Review of nursing notes shows patient has remained quite wheezy and rhonchorous over the last 24 hours. Currently patient is sitting in bed without use of supplemental oxygen. Ambulation over the last few days is been minimal. Sputum culture was finally able to be collected. Exam Vital signs and Labs for Last 24 Hours: Temp Pulse Resp BP Pulse Ox 98.6 F 99 H 20 128/81 90 L 05/28/18 04:00 05/28/18 06:45 05/28/18 04:00 05/28/18 04:00 05/28/18 06:45 Laboratory Results - last 24 hr 05/27/18 05:15: Total Counted 100, Neutrophils % (Manual) 91 H, Lymphocytes % (Manual) 7 L, Monocytes % (Manual) 2, Platelet Estimate Moderate decrease, RBC Morphology Normal 05/27/18 08:15: Vancomycin Trough 8.3 L 05/27/18 11:27: POC Glucose 184 H 05/27/18 16:00: POC Glucose 204 H 05/27/18 20:16: POC Glucose 187 H 05/28/18 05:30: WBC 4.6 L, RBC 3.00 L, Hgb 9.4 L, Hct 29.6 L, MCV 98.7, MCH 31.3 H, MCHC 31.7 L, RDW 14.2, Plt Count 104 L, MPV 7.6, Neut % (Auto) 87.0 H, Lymph % (Auto) 8.3 L, [place] % (Auto) 4.3, Eos % (Auto) 0.3, Baso % (Auto) 0.0 L, Neut # (Auto) 4.0, Lymph # (Auto) 0.4 L, [place] # (Auto) 0.2, Eos # (Auto) 0.0, Baso # (Auto) 0.0 05/28/18 05:30: Sodium 140, Potassium 4.3, Chloride 107, Carbon Dioxide 22, Anion Gap 15.3 H, BUN 29 H, Creatinine 0.94, Estimated Creat Clear 75, Estimated GFR 61, Est GFR ( Amer) 74, Glucose 208 H, Calcium 7.9 L 05/28/18 05:36: POC Glucose 212 H I & O for Last 24 hours: Intake & Output 05/25/18 05/26/18 05/27/18 05/28/18 11:59 11:59 11:59 11:59 Intake Total 4622 / 4622 1511 / 1511 3088 / 3088 1695 / 1695 Output Total 900 / 900 2450 / 2450 1400 / 1400 1200 / 1200 Balance 3722 / 3722 -939 / -939 1688 / 1688 495 / 495 Weight 156 lb 163 lb 163 lb Microbiology Reports for the Last 24 Hours: Microbiology 05/27/18 21:00 Sputum - Expectorated Sputum Gram Stain - Final Narrative: Patient is awake and alert. Oropharynx is moist. Neck is without lymphadenopathy. Heart has a regular rate and rhythm. Lungs have diffuse expiratory wheezes with prolonged expiratory phase. I do not hear any rhonchi o r rales this morning Assessment and Plan (1) Community acquired pneumonia Current visit: Yes Status: Acute Qualifiers: Laterality: left Lung location: lower lobe of lung Qualified Code(s): J18.1 - Lobar pneumonia, unspecified organism Category: Medical Code(s): J18.9 - Pneumonia, unspecified organism (2) Septic shock Current visit: Yes Status: Acute Category: Medical Code(s): A41.9 - Sepsis, unspecified organism; R65.21 - Severe sepsis with septic shock (3) Hyperkalemia Current visit: Yes Status: Acute Category: Medical Code(s): E87.5 - Hyperkalemia (4) Diabetes mellitus with hypoglycemia Current visit: Yes Status: Acute Category: Medical Code(s): E11.649 - Type 2 diabetes mellitus with hypoglycemia without coma (5) COPD exacerbation Current visit: No Status: Acute Category: Medical Code(s): J44.1 - Chronic obstructive pulmonary disease with (acute) exacerbation - Assessment and plan all Dx Assessment and Plan for all problems:: 1. No change in plan of care at this time. I have encouraged patient to get out of bed and ambulate as this is an obstacle to discharge. I will reassess her this afternoon
[2018-05-28 07:29] LABS: Lymphocytes % 9 % (10-50); Monocytes % 3 % (2-9); Neutrophils % 88 % (42-76); Total Cells Counted 100
[2018-05-28 07:30] LABS: RBC Morphology Normal
--- NOTE | 2018-05-28 10:01 | Progress Note ---
Internal Medicine - PN: Subj *Date: 05/28/18 *Time: 10:00 Exam Vital signs and Labs for Last 24 Hours: Temp Pulse Resp BP Pulse Ox 98.2 F 96 H 22 121/76 91 L 05/28/18 08:00 05/28/18 08:48 05/28/18 08:00 05/28/18 08:00 05/28/18 08:00 Laboratory Results - last 24 hr 05/27/18 11:27: POC Glucose 184 H 05/27/18 16:00: POC Glucose 204 H 05/27/18 20:16: POC Glucose 187 H 05/28/18 05:30: WBC 4.6 L, RBC 3.00 L, Hgb 9.4 L, Hct 29.6 L, MCV 98.7, MCH 31.3 H, MCHC 31.7 L, RDW 14.2, Plt Count 104 L, MPV 7.6, Neut % (Auto) 87.0 H, Lymph % (Auto) 8.3 L, [place] % (Auto) 4.3, Eos % (Auto) 0.3, Baso % (Auto) 0.0 L, Neut # (Auto) 4.0, Lymph # (Auto) 0.4 L, [place] # (Auto) 0.2, Eos # (Auto) 0.0, Baso # (Auto) 0.0, Total Counted 100, Neutrophils % (Manual) 88 H, Lymphocytes % (Manual) 9 L, Monocytes % (Manual) 3, Platelet Estimate Slight decrease, RBC Morphology Normal 05/28/18 05:30: Sodium 140, Potassium 4.3, Chloride 107, Carbon Dioxide 22, Anion Gap 15.3 H, BUN 29 H, Creatinine 0.94, Estimated Creat Clear 75, Estimated GFR 61, Est GFR ( Amer) 74, Glucose 208 H, Calcium 7.9 L 05/28/18 05:36: POC Glucose 212 H I & O for Last 24 hours: Intake & Output 05/25/18 05/26/18 05/27/18 05/28/18 23:59 23:59 23:59 23:59 Intake Total 1222 / 1222 2765 / 2765 2929 / 2929 240 / 240 Output Total 2600 / 2600 850 / 850 2100 / 2100 400 / 400 Balance -1378 / -1378 1915 / 1915 829 / 829 -160 / -160 Weight 70.76 kg 73.936 kg 73.936 kg Microbiology Reports for the Last 24 Hours: Microbiology 05/27/18 21:00 Sputum - Expectorated Sputum Gram Stain - Final 05/27/18 21:00 Sputum - Expectorated Sputum Sputum Culture - Preliminary Assessment and Plan (1) Community acquired pneumonia Current visit: Yes Status: Acute Qualifiers: Laterality: left Lung location: lower lobe of lung Qualified Code(s): J18.1 - Lobar pneumonia, unspecified organism Category: Medical Code(s): J18.9 - Pneumonia, unspecified organism (2) Septic shock Current visit: Yes Status: Acute Category: Medical Code(s): A41.9 - Sepsis, unspecified organism; R65.21 - Severe sepsis with septic shock (3) Hyperkalemia Current visit: Yes Status: Acute Category: Medical Code(s): E87.5 - Hyperkalemia (4) Diabetes mellitus with hypoglycemia Current visit: Yes Status: Acute Category: Medical Code(s): E11.649 - Type 2 diabetes mellitus with hypoglycemia without coma (5) COPD exacerbation Current visit: No Status: Acute Category: Medical Code(s): J44.1 - Chronic obstructive pulmonary disease with (acute) exacerbation The patient's infection will respond to the chosen ABx?: Yes Is the patient receiving the right drug, dose, and route?: Yes Could a more targeted ABx be ordered?: No
[2018-05-29 06:19] LABS: Anion Gap 13.4 mEq/L (5-15); Calcium 8.3 mg/dL (8.5-10.1); Potassium 3.4 mmoL/L (3.5-5.1)
[2018-05-29 06:22] LABS: Basophils % 0.1 % (0.1-2.0); Eosinophils % 0.1 % (0.1-12.0); Hematocrit 29.9 % (37.0-47.0); Hemoglobin 9.7 g/dL (12.2-16.2); Lymphocytes # 0.4 K/mm3 (0.7-4.5); Lymphocytes % 9.6 % (10-50); Mean Corpuscular HGB Conc 32.3 g/dL (31.8-35.4); Mean Corpuscular Volume 96.1 fl (81-99); Mean Platelet Volume 7.7 fl (7.4-10.4); Monocytes # 0.2 K/mm3 (0.1-1.0); Monocytes % 5.7 % (1.7-9.3); Neutrophils # 3.6 K/mm3 (1.8-7.8); Neutrophils % 84.4 % (37.0-80.0); Platelet Count 120 K/mm3 (142-424); Red Blood Count 3.11 M/mm3 (4.20-5.40); White Blood Count 4.2 K/mm3 (4.8-10.8)
--- NOTE | 2018-05-29 07:17 | Progress Note ---
Internal Medicine - PN: Subj *Date: 05/29/18 *Time: 07:14 Interval history: 57 year old female admitted for pneumonia and sepsis, sitting on side of bed getting ready to have breakfast. Nursing staff report she had a good night using her incentive spirometer frequently. She is hoping to discharge home today. Does not currently have home oxygen but has in the past. Exam Vital signs and Labs for Last 24 Hours: Temp Pulse Resp BP Pulse Ox 97.9 F 94 H 20 120/69 94 L 05/29/18 04:00 05/29/18 06:53 05/29/18 04:00 05/29/18 04:00 05/29/18 06:53 Laboratory Results - last 24 hr 05/28/18 05:30: Total Counted 100, Neutrophils % (Manual) 88 H, Lymphocytes % (Manual) 9 L, Monocytes % (Manual) 3, Platelet Estimate Slight decrease, RBC Morphology Normal 05/28/18 11:55: POC Glucose 206 H 05/28/18 16:50: POC Glucose 186 H 05/28/18 20:50: Vancomycin Trough 16.3 05/28/18 20:52: POC Glucose 223 H 05/29/18 05:31: WBC 4.2 L, RBC 3.11 L, Hgb 9.7 L, Hct 29.9 L, MCV 96.1, MCH 31.0, MCHC 32.3, RDW 14.0, Plt Count 120 L, MPV 7.7, Neut % (Auto) 84.4 H, Lymph % (Auto) 9.6 L, [place] % (Auto) 5.7, Eos % (Auto) 0.1, Baso % (Auto) 0.1, Neut # (Auto) 3.6, Lymph # (Auto) 0.4 L, [place] # (Auto) 0.2, Eos # (Auto) 0.0, Baso # (Auto) 0.0 05/29/18 05:31: Sodium 140, Potassium 3.4 L D, Chloride 103, Carbon Dioxide 27 D, Anion Gap 13.4, BUN 24 H, Creatinine 0.86, Estimated Creat Clear 79, Estimated GFR 68, Est GFR ( Amer) 82, Glucose 188 H, Calcium 8.3 L 05/29/18 05:59: POC Glucose 174 H I & O for Last 24 hours: Intake & Output 05/26/18 05/27/18 05/28/18 05/29/18 23:59 23:59 23:59 23:59 Intake Total 2765 / 2765 2929 / 2929 1681 / 1681 850 / 850 Output Total 850 / 850 2100 / 2100 2600 / 2600 3400 / 3400 Balance 1915 / 191 829 / 829 -919 / -919 -2550 / -2550 Weight 163 lb 163 lb 157 lb 6 oz Microbiology Reports for the Last 24 Hours: Microbiology 05/27/18 21:00 Sputum - Expectorated Sputum Gram Stain - Final 05/27/18 21:00 Sputum - Expectorated Sputum Sputum Culture - Preliminary - Constitutional no acute distress, cooperative - *Routine HEENT Exam Head: Present: normocephalic - *Routine Respiratory Exam Present: accessory muscle use Comments: inspiratory and expiratory wheezes heard throughout - *Routine Cardiovascular Exam Present: RRR, tachycardia - *Routine Abdominal Exam Present: soft, normoactive bowel sounds - *Routine Extremities Exam Comments: no pedal edema noted - *Routine Neurological Exam Present: alert oriented to person, intermittent confusion to place and time - Routine Psychiatric Exam Present: normal affect Assessment and Plan (1) Community acquired pneumonia Current visit: Yes Status: Acute Qualifiers: Laterality: left Lung location: lower lobe of lung Qualified Code(s): J18.1 - Lobar pneumonia, unspecified organism Category: Medical Code(s): J18.9 - Pneumonia, unspecified organism (2) Septic shock Current visit: Yes Status: Acute Category: Medical Code(s): A41.9 - Sepsis, unspecified organism; R65.21 - Severe sepsis with septic shock (3) Hyperkalemia Current visit: Yes Status: Acute Category: Medical Code(s): E87.5 - Hyperkalemia (4) Diabetes mellitus with hypoglycemia Current visit: Yes Status: Acute Category: Medical Code(s): E11.649 - Type 2 diabetes mellitus with hypoglycemia without coma (5) COPD exacerbation Current visit: No Status: Acute Category: Medical Code(s): J44.1 - Chronic obstructive pulmonary disease with (acute) exacerbation - Assessment and plan all Dx Assessment and Plan for all problems:: Nursing staff will assess and document room air oxygen saturation at rest to qualify for home oxygen. Patient will be discharged home today, follow up appointment with Dr Mejia June 01 at 10am.
--- NOTE | 2018-05-29 07:24 | Discharge Summary ---
General - General Admission date:: 05/24/18 Discharge date: 05/29/18 HPI HPI: 57-year-old female with COPD and diabetes mellitus presented to the emergency department with her daughter with complaint of vomiting and diarrhea along with fevers. This morning due to the patient's condition the history is taken from the daughter. Daughter states on Friday evening her mother complained of some nausea and then began vomiting. She continued to have vomiting throughout the night Friday night into Friday morning along with onset of diarrhea. Symptoms persisted into the afternoon on Friday. Simultaneously she began experiencing increase in wheezing. Patient appeared weekend and was getting confused according to the daughter. She brought her to the emergency department. In the emergency department workup was begun. Patient met criteria for sepsis and was found to have a left lower lobe pneumonia on. Patient received fluid bolus and was placed on Invanz and admitted to the stepdown unit. This morning patient's blood pressures have improved. She remains tachycardic. She is requiring supplemental oxygen. Patient's daughter is at bedside. Hospital Course Hospital Course: Patient was admitted and placed on Invanz to treat community-acquired pneumonia. Large volume IV fluids were given due to patient's hypotension and tachycardia. Patient met criteria for septic shock. After fluid boluses blood pressure normalized. After initial night of admission white count ashley and vancomycin was added to patient's regimen. Patient was also having a COPD exacerbation triggered by the pneumonia and Solu-Medrol 60 mg every 8 hours was added to her regimen along with duo nebs. Patient's white count gradually trended down during her weeklong hospitalization. Patient remained somnolent with intermittent confusion about the first 48 hours of hospitalization. After 48 hours patient became more lucid. As her appetite improved her IV fluids were discontinued. Clinically patient showed signs of improvement on her lung exam while initially she had a rales mixed with wheezes and rhonchi the basilar rales improved as hospitalization progressed. Patient still remained quite wheezy. During hospitalization she was also given intravenous magnesium as well as Lasix and attempts to improve her lung function. Patient was also given home medicines during hospitalization plus sliding scale insulin as steroids made her hypoglycemic. By May 29 the patient was ambulating. She still had wheezes on lung exam. Mental status had returned to baseline. She was able to ambulate in the hallways. Room air O2 sats were below 87%, qualifying the patient for oxygen please see nursing notes for full documentations. Patient was discharged home and will continue steroids as well as antibiotics. She will follow-up in my office on June 01 at 10 AM peer Sputum cultures were showing a light growth of gram-positive diplococci at discharge Blood cultures were negative x2 Objective Vital signs: Temp Pulse Resp BP Pulse Ox 97.9 F 94 H 20 120/69 94 L 05/29/18 04:00 05/29/18 06:53 05/29/18 04:00 05/29/18 04:00 05/29/18 06:53 Results Labs on day of discharge: Labs from last 24 hours 05/29/18 05/29/18 05/29/18 05:59 05:31 05:31 WBC 4.2 L RBC 3.11 L Hgb 9.7 L Hct 29.9 L MCV 96.1 MCH 31.0 MCHC 32.3 RDW 14.0 Plt Count 120 L MPV 7.7 Neut % (Auto) 84.4 H Lymph % (Auto) 9.6 L [place] % (Auto) 5.7 Eos % (Auto) 0.1 Baso % (Auto) 0.1 Neut # (Auto) 3.6 Lymph # (Auto) 0.4 L [place] # (Auto) 0.2 Eos # (Auto) 0.0 Baso # (Auto) 0.0 Total Counted Neutrophils % (Manual) Lymphocytes % (Manual) Monocytes % (Manual) Platelet Estimate RBC Morphology Sodium 140 Potassium 3.4 L D Chloride 103 Carbon Dioxide 27 D Anion Gap 13.4 BUN 24 H Creatinine 0.86 Estimated Creat Clear 79 Estimated GFR 68 Est GFR ( Amer) 82 Glucose 188 H POC Glucose 174 H Calcium 8.3 L Vancomycin Trough 05/28/18 05/28/18 05/28/18 20:52 20:50 16:50 WBC RBC Hgb Hct MCV MCH MCHC RDW Plt Count MPV Neut % (Auto) Lymph % (Auto) [place] % (Auto) Eos % (Auto) Baso % (Auto) Neut # (Auto) Lymph # (Auto) [place] # (Auto) Eos # (Auto) Baso # (Auto) Total Counted Neutrophils % (Manual) Lymphocytes % (Manual) Monocytes % (Manual) Platelet Estimate RBC Morphology Sodium Potassium Chloride Carbon Dioxide Anion Gap BUN Creatinine Estimated Creat Clear Estimated GFR Est GFR ( Amer) Glucose POC Glucose 223 H 186 H Calcium Vancomycin Trough 16.3 05/28/18 05/28/18 11:55 05:30 WBC RBC Hgb Hct MCV MCH MCHC RDW Plt Count MPV Neut % (Auto) Lymph % (Auto) [place] % (Auto) Eos % (Auto) Baso % (Auto) Neut # (Auto) Lymph # (Auto) [place] # (Auto) Eos # (Auto) Baso # (Auto) Total Counted 100 Neutrophils % (Manual) 88 H Lymphocytes % (Manual) 9 L Monocytes % (Manual) 3 Platelet Estimate Slight decrease RBC Morphology Normal Sodium Potassium Chloride Carbon Dioxide Anion Gap BUN Creatinine Estimated Creat Clear Estimated GFR Est GFR ( Amer) Glucose POC Glucose 206 H Calcium Vancomycin Trough Preliminary micro results at discharge 05/27/18 21:00 Sputum Culture - Preliminary Sputum - Expectorated Sputum 05/24/18 19:40 Blood Culture - Preliminary Blood NO GROWTH AFTER 48 HOURS 05/24/18 19:40 Blood Culture - Preliminary Blood NO GROWTH AFTER 48 HOURS DS: Diagnosis - Discharge Diagnosis (1) Community acquired pneumonia Status: Acute (2) Septic shock Status: Acute (3) Hyperkalemia Status: Acute (4) Diabetes mellitus with hypoglycemia Status: Acute (5) COPD exacerbation Status: Acute Discharge Plan - Patient Discharge Instructions ACTIVITY: Continue current activity DIET: continue same diet Patient Instructions: DI for Pneumonia -- Adult, DI for Sepsis -- Adult - Follow up Plan Follow up with: Rodolfo Mejia MD [Primary Care Provider] - Disposition: Home, Self-Senior Care Medications: Home Medications Medication Instructions Recorded Confirmed Type diazepam 10 mg tablet 10 mg PO TIDP PRN 30 Days #90 09/11/17 05/25/18 History digoxin 250 mcg tablet 250 mcg PO DAILY 30 Days #30 09/11/17 05/24/18 History fluticasone 100 mcg-vilanterol 25 1 puff INHALATION DAILY 30 Days #60 09/11/17 05/24/18 History mcg/dose powder for inhalation fluticasone 50 mcg/actuation nasal 1 spray INTRANASAL DAILY 30 Days 09/11/17 05/25/18 History spray,suspension #16 furosemide 80 mg tablet 80 mg PO DAILYP PRN 09/11/17 05/25/18 History ipratropium 20 mcg-albuterol 100 1 puff INHALATION QID 30 Days #4 09/11/17 05/25/18 History mcg/actuation mist for inhalation metoclopramide 5 mg tablet 5 mg PO ACHS 30 Days #120 09/11/17 05/24/18 History pantoprazole 40 mg tablet,delayed 40 mg PO DAILY 30 Days #30 09/11/17 05/24/18 History release paroxetine 30 mg tablet 30 mg PO DAILY 30 Days #30 09/11/17 05/24/18 History promethazine 25 mg tablet 25 mg PO BIDP PRN 30 Days #60 09/11/17 05/25/18 History umeclidinium 62.5 mcg/actuation 1 puff INHALATION DAILY 30 Days #30 09/11/17 05/25/18 History blister powder for inhalation Insulin Degludec [Tresiba 25 unit SQ HS 05/25/18 05/25/18 History Flextouch U-200] Insulin Lispro [Humalog Kwikpen 25 unit SQ AC 05/25/18 05/25/18 History U-100] Montelukast Sodium [Montelukast 10 mg PO HS 05/25/18 05/25/18 History 10mg Tab] predniSONE [Prednisone 5mg 5 mg PO DAILY 05/25/18 05/25/18 History Tab] Tramadol HCl [Ultram 50mg 100 mg PO Q8HP PRN 05/26/18 05/26/18 History tablet] Prescriptions/Medication Reconciliation: New Cefdinir [Omnicef 300mg Capsule] 300 mg PO BID #10 cap predniSONE [Prednisone 20mg Tab] 2 tab PO DAILY #14 tab Continue diazepam 10 mg tablet 10 mg PO TIDP PRN 30 Days #90 PRN Reason: Anxiety ipratropium 20 mcg-albuterol 100 mcg/actuation mist for inhalation 1 puff IN HALATION QID 30 Days #4 fluticasone 100 mcg-vilanterol 25 mcg/dose powder for inhalation 1 puff INHALATION DAILY 30 Days #60 promethazine 25 mg tablet 25 mg PO BIDP PRN 30 Days #60 PRN Reason: Nausea And Vomiting fluticasone 50 mcg/actuation nasal spray,suspension 1 spray INTRANASAL DAILY 30 Days #16 pantoprazole 40 mg tablet,delayed release 40 mg PO DAILY 30 Days #30 paroxetine 30 mg tablet 30 mg PO DAILY 30 Days #30 metoclopramide 5 mg tablet 5 mg PO ACHS 30 Days #120 digoxin 250 mcg tablet 250 mcg PO DAILY 30 Days #30 furosemide 80 mg tablet 80 mg PO DAILYP PRN PRN Reason: FLUID umeclidinium 62.5 mcg/actuation blister powder for inhalation 1 puff INHALATION DAILY 30 Days #30 Insulin Lispro [Humalog Kwikpen U-100] 25 unit SQ AC Tramadol HCl [Ultram 50mg tablet] 100 mg PO Q8HP PRN PRN Reason: PAIN Montelukast Sodium [Montelukast 10mg Tab] 10 mg PO HS Insulin Degludec [Tresiba Flextouch U-200] 25 unit SQ HS Discontinued predniSONE [Prednisone 5mg Tab] 5 mg PO DAILY
== END 2018-05-29 10:30 | disposition home or self-care (01) ==
LOC: ER 17:23 → 2ND 21:52
PROVIDERS: ADMIT Internal Medicine Adolescent Medicine; ATTEND Family Medicine

== ENCOUNTER 2019-01-22 17:53 | Inpatient (IN) ==
--- NOTE | 2019-01-22 18:02 | Emergency Department Note ---
ED Disposition Clinical Impression: COPD (chronic obstructive pulmonary disease) with acute bronchitis, Metabolic acidosis, Elevated troponin I level, Nausea & vomiting, Diabetes mellitus Disposition: Admitted As Inpatient Condition on Discharge: Serious Referrals: Rodolfo Mejia MD [Primary Care Provider] - Time of Disposition: 20:08 - Critical Care Critical Care Time: No Attestation: On , the high probability of a clinically significant, sudden or life threatening deterioration of the following system(s) required my full and direct attention, intervention and personal management. The time I documented below is in addition to time spent performing reported procedures but includes the following listed in this critical care notation. Medical Decision Making - Medical Records Medical records reviewed: Yes: I reviewed the patient's medical records. - Fran Inquiry Pt receiving controlled substance: No Fran was queried for this patient: No Vital Signs: 01/22/19 17:56 01/22/19 18:24 01/22/19 18:40 Temperature 98.9 F Temperature Source Oral Pulse Rate 125 H Pulse Rate [Right Radial] 129 H 128 H Respiratory Rate 34 H Blood Pressure [Right Arm] 113/62 140/62 Blood Pressure Mean [Right Arm] 79 88 Blood Pressure Source [Right Arm] Automatic Cuff Automatic Cuff Blood Pressure Position [Right Arm] Sitting Sitting 02 Sat by Pulse Oximetry 94 L 96 Oxygen Delivery Method Room Air Room Air 01/22/19 18:54 Temperature Temperature Source Pulse Rate Pulse Rate [Right Radial] 126 H Respiratory Rate Blood Pressure [Right Arm] 112/58 L Blood Pressure Mean [Right Arm] 76 Blood Pressure Source [Right Arm] Automatic Cuff Blood Pressure Position [Right Arm] Sitting 02 Sat by Pulse Oximetry 97 Oxygen Delivery Method Room Air - Lab Data Lab results reviewed: Yes: I reviewed the patient's lab results. Lab Results 01/22/19 18:04: ABG pH 7.20 L*, ABG pCO2 25.3 L, ABG pO2 81.8, ABG HCO3 9.6 L, ABG Total CO2 10.4 L, ABG O2 Saturation 95, ABG Base Excess -18.4 L 01/22/19 18:24: WBC 9.1, RBC 4.27, Hgb 13.3, Hct 42.8, MCV 100.1 H, MCH 31.1, MCHC 31.0 L, RDW 12.9, Plt Count 218, MPV 8.0, Neut % (Auto) 71.5, Lymph % (Auto) 19.8, Snyder % (Auto) 6.2, Eos % (Auto) 2.3, Baso % (Auto) 0.3, Neut # (Auto) 6.5, Lymph # (Auto) 1.8, Snyder # (Auto) 0.6, Eos # (Auto) 0.2, Baso # (Auto) 0.0 01/22/19 18:24: Sodium 129 L, Potassium 5.0, Chloride 92 L, Carbon Dioxide 11 L, Anion Gap 31.0 H, BUN 37 H, Creatinine 1.59 H, Estimated Creat Clear 40, Estimated GFR 33 L, Est GFR ( Amer) 40 L, Glucose 61 L, Calcium 9.2, Total Bilirubin 0.9, AST 26, ALT 25, Alkaline Phosphatase 80, Troponin I 0.18 H, Total Protein 6.9, Albumin 3.4, Globulin 3.5 H, Albumin/Globulin Ratio 1.0 L 01/22/19 18:24: Lactate 0.6 01/22/19 18:24: Acetone Level Small 01/22/19 19:46: Urine Color Yellow, Urine Appearance Clear, Urine pH 6.0, Ur Specific [place] 1.025, Urine Protein Trace, Urine Glucose (UA) Negative, Urine Ketones 2+, Urine Blood Negative, Urine Nitrate Negative, Urine Bilirubin Negative, Urine Urobilinogen 1.0, Ur Leukocyte Esterase Negative Result diagrams: 01/22/19 18:24 01/22/19 18:24 Orders (Tests/Meds): ED MEDICATIONS Generic Name Dose Route Start Last Admin Trade Name Freq PRN Reason Stop Dose Admin Sodium Chloride 1,000 mls @ 999 mls/hr 01/22/19 18:15 01/22/19 18:33 Sod Chlor 0.9% 1000ml Bag IV 01/22/19 19:15 999 mls/hr .Q1H1M CELIO Administration Discontinued Medications Generic Name Dose Route Start Last Admin Trade Name Freq PRN Reason Stop Dose Admin Albuterol/Ipratropium 3 ml 01/22/19 18:06 01/22/19 18:25 Duoneb 3ml Neb IH 01/22/19 18:07 3 ml ONCE ONE Administration Methylprednisolone Sodium Succinate 125 mg 01/22/19 18:06 01/22/19 18:33 Solu-Medrol 125mg/2ml Vial IV 01/22/19 18:07 125 mg ONCE ONE Administration ORDERS Category Date Time Status CT abdomen pelvis wo con Stat Cat Scan 01/22/19 18:[address] chest wo con Stat Cat Scan 01/22/19 18:07 Taken UA [Urinalysis and Microscopic] Stat Lab 01/22/19 19:46 Results Blood Culture Stat Micro 01/22/19 19:11 Received General Adult HPI - General Chief complaint: Weakness Stated complaint: weakness, unable to eat or drink Time Seen by Provider: 01/22/19 18:02 Mode of Arrival: EMS Limitations: No Limitations - History of Present Illness HPI narrative: cough, fever, abdominal pain and vomiting. duration ?? - Related Data Home Medications Medication Instructions Recorded Confirmed digoxin 250 mcg tablet 250 mcg PO DAILY 30 Days #30 09/11/17 05/24/18 pantoprazole 40 mg tablet,delayed 40 mg PO DAILY 30 Days #30 09/11/17 05/24/18 release paroxetine 30 mg tablet 30 mg PO DAILY 30 Days #30 09/11/17 05/24/18 Insulin Degludec [Tresiba 25 unit SQ HS 05/25/18 05/25/18 Flextouch U-200] Insulin Lispro [Humalog Kwikpen 25 unit SQ AC 05/25/18 05/25/18 U-100] predniSONE [Prednisone 20mg 2 tab PO DAILY 10/02/18 Tab] Previous Rx's Medication Instructions Recorded cefUROXime axetil [Ceftin 500mg 500 mg PO BID #20 tab 10/02/18 Tab (GEQ)] Albuterol Sulfate [Albuterol HFA 1 - 2 puffs IH Q4-6H PRN #1 inh 12/13/18 Inhaler] Cefdinir [Omnicef 300mg Capsule] 300 mg PO BID #20 cap 12/13/18 Promethazine/Dextromethorphan 5 ml PO Q6HP PRN #240 syrup 12/13/18 [Promethazine-Dm Syrup] Allergies Allergy/AdvReac Type Severity Reaction Status Date / Time amoxicillin [AMOXICILLIN] Allergy Intermediate I-RASH Verified 02/25/18 12:49 azithromycin [AZITHROMYCIN] Allergy Intermediate I-RASH Verified 02/25/18 12:49 doxycycline [DOXYCYCLINE] Allergy Intermediate I-RASH Verified 02/25/18 12:49 levofloxacin [LEVOFLOXACIN] Allergy Intermediate NA-NAUSEA/V Verified 02/25/18 12:49 OMITING Penicillins [PENICILLINS] Allergy Intermediate I-RASH Verified 02/25/18 12:49 propoxyphene [PROPOXYPHENE] Allergy Intermediate NA-NAUSEA/V Verified 02/25/18 12:49 OMITING Sulfa (Sulfonamide Allergy Intermediate NA-NAUSEA/V Verified 02/25/18 12:49 Antibiotics) OMITING [SULFA (SULFONAMIDE ANTIBIOTICS)] trimethoprim [TRIMETHOPRIM] Allergy Intermediate NA-NAUSEA/V Verified 02/25/18 12:49 OMITING ibuprofen [IBUPROFEN] Allergy Mild NA-NAUSEA/V Verified 02/25/18 12:49 OMITING Quinolones [QUINOLONES] Allergy Unknown Verified 02/25/18 12:49 sulfamethoxazole Allergy Unknown Verified 02/25/18 12:49 [SULFAMETHOXAZOLE] [facility] History - Hepatitis A Screen Attestation statement:: This patient has been screened for Hepatitis A risk factors. I have reviewed the patient's past medical history: No Medical History: Reports:: Congestive Heart Failure, Chronic Obstructive Pulmonary Disease (COPD), Diabetes Mellitus Type 2, Hyperlipidemia Denies:: Cancer, Diabetes Mellitus Type 1, Hypertension, Internal Pacemaker, MRSA Other Medical History: Reports: Arthritis (osteo), Cataracts, Sinus Problems Comment: Chronic back pain Other Surgeries: Yes: Colonoscopy, Tubal Ligation, Other (plurisey). No: Pacemaker Amputation: No Fractures: No - Social History Smoking Status: Current every day smoker Tobacco Type: cigarettes # Packs/Day (cigarettes): 1 #Yrs smoked (if former smoker): 43 Alcohol Intake: never Alcohol Intake Frequency:: a few times a week Substance Use Type: denies use Occupational Status: disabled Housing: house Household Members: family Family Hx:: Asthma, Cancer, Coronary Artery Disease, Diabetes, Heart Attack, Hyperlipidemia, Hypertension, Stroke, Thyroid Disorder ROS Obtained: Yes All systems reviewed & no additional complaints - Constitutional Constitutional: Reports chills, Reports fever(s) - Eyes Eyes: Denies blurry vision - ENT Ears, Nose, Mouth, and Throat: Denies sinus pain, Denies throat swelling - Cardiovascular Cardiovascular: Denies chest pain, Denies chest pain at rest, Reports dyspnea - Respiratory Respiratory: Yes chest congestion, Yes cough, Yes dyspnea, No coughing up blood - Gastrointestinal Gastrointestingal: Reports: abdominal pain, vomiting - Genitourinary Female Genitourinary: Denies dysuria - Musculoskeletal Musculoskeletal: Reports muscle aches - Integumentary/Breasts Skin/Breast: Denies rash, Denies skin pain - Neurologic Neurologic: Denies headache(s) - Hematologic/Lymphatic Henatologic/Lymphatic: Denies easy bleeding Physical Exam - General General appearance: alert, in distress, other (acutely ill, coughing and dyspneic) - Head Head exam: atraumatic, normocephalic, normal inspection - ENT ENT exam: Present: normal exam, normal oropharynx, mucous membranes moist, TM's normal bilaterally, normal external ear exam - Neck Neck exam: Present: normal inspection, full ROM, trachea midline. Absent: meningismus, lymphadenopathy - Respiratory Respiratory exam: Present: respiratory distress, wheezes, other (rhonchi diffusely). Absent: normal lung sounds bilaterally - Cardiovascular Cardiovascular exam: Present: normal rhythm, tachycardia - Neurological Exam Neurological exam: Present: alert, CN II-XII intact. Absent: oriented X3
[2019-01-22 18:35] LABS: ABG Base Excess -18.4 mmol/L (-2.4-2.3); ABG HCO3 9.6 mmhg (22.0-26.0); ABG Oxygen Saturation 95 % (90-100); ABG PCO2 25.3 mmhg (35.0-45.0); ABG PO2 81.8 mmhg (80-100); ABG TCO2 10.4 mmhg (23-27)
[2019-01-22 18:45] LABS: Basophils % 0.3 % (0.1-2.0); Eosinophils # 0.2 K/mm3 (0.0-0.4); Eosinophils % 2.3 % (0.1-12.0); Hematocrit 42.8 % (37.0-47.0); Hemoglobin 13.3 g/dL (12.2-16.2); Lymphocytes # 1.8 K/mm3 (0.7-4.5); Lymphocytes % 19.8 % (10-50); Mean Corpuscular Volume 100.1 fl (81-99); Monocytes # 0.6 K/mm3 (0.1-1.0); Monocytes % 6.2 % (1.7-9.3); Neutrophils # 6.5 K/mm3 (1.8-7.8); Neutrophils % 71.5 % (37.0-80.0); Platelet Count 218 K/mm3 (142-424); Red Blood Count 4.27 M/mm3 (4.20-5.40); Red Cell Distribution Width 12.9 % (11.5-17.5); White Blood Count 9.1 K/mm3 (4.8-10.8)
[2019-01-22 18:58] LABS: Albumin Level 3.4 gm/dL (3.4-5.0); Bilirubin,Total 0.9 mg/dL (0.2-1.0); Calcium 9.2 mg/dL (8.5-10.1); Globulin 3.5 gm/dl (1.3-3.2); Total Protein,Serum 6.9 gm/dL (6.4-8.2)
[2019-01-22 19:55] LABS: Microscopic, Urine URINE MICROSCOPIC (MICROSCOPIC)
[2019-01-22 20:01] LABS: Appearance,Urine CLEAR (Clear); Blood, Urine Negative (Negative); Color,Urine YELLOW (Yellow); Glucose,Urine (UA) Negative (Negative); Ketones,Urine 2+ (Negative); Leukocyte Esterase,Urine Negative (Negative); Protein,Urine TRACE (Negative); Specific Gravity, Urine 1.025 (1.005-1.030)
[2019-01-22 20:06] LABS: Bilirubin,Urine Negative (Negative)
[2019-01-22 20:07] LABS: WBC,Urine Occasional #/hpf (0-3)
[2019-01-23 05:45] LABS: Basophils % 0.2 % (0.1-2.0); Eosinophils % 0.1 % (0.1-12.0); Lymphocytes # 0.4 K/mm3 (0.7-4.5); Mean Corpuscular HGB Conc 30.3 g/dL (31.8-35.4); Mean Corpuscular Volume 102.9 fl (81-99); Mean Platelet Volume 7.8 fl (7.4-10.4); Monocytes # 0.1 K/mm3 (0.1-1.0); Monocytes % 1.3 % (1.7-9.3); Neutrophils % 91.3 % (37.0-80.0); Platelet Count 198 K/mm3 (142-424); Red Blood Count 4.17 M/mm3 (4.20-5.40); Red Cell Distribution Width 12.8 % (11.5-17.5); White Blood Count 5.5 K/mm3 (4.8-10.8)
[2019-01-23 05:58] LABS: Hypochromasia 2+; Lymphocytes % 5 % (10-50); Macrocytosis 2+; Neutrophils % 84 % (42-76); Total Cells Counted 100
[2019-01-23 06:02] LABS: Anion Gap 30.3 mEq/L (5-15); Blood Urea Nitrogen 31 mg/dL (7-18); Calcium 9.1 mg/dL (8.5-10.1); Chloride 98 mmol/L (98-107); Sodium 132 mmol/L (136-145)
[2019-01-23 06:07] LABS: Carbon Dioxide 10 mmol/L (21.0-32.0)
[2019-01-23 06:08] LABS: Glucose 160 mg/dL (74-106)
--- NOTE | 2019-01-23 07:19 | History & Physical Report ---
*Admission Date: 01/22/19 *Chief complaint: Weakness *History of present illness: 58-year-old female with history of diabetes presented to the emergency department with complaints of malaise, cough with mild dyspnea, abdominal pain and nausea since Friday (January 19). Work-up in the emergency department revealed hypoglycemia with a metabolic acidosis and physical findings consistent with acute bronchitis on top of COPD patient was weak with abnormal lung exam. pH of 7.2 on a blood gas. Decision was made to admit the patient for IV fluids, IV antibiotics for her bronchitis with suspicion of early sepsis despite normal lactate. Patient also had elevated troponin.. This morning the patient confirms the information given to the emergency department. At present her biggest complaint is nausea. She does admit to cough with yellow sputum production. She also admits to very poor appetite with minimal activity over the last 4 days. [facility] History I have reviewed the patient's past medical history: Yes Medical History: Reports:: Congestive Heart Failure, Chronic Obstructive Pulmonary Disease (COPD), Diabetes Mellitus Type 2, Hyperlipidemia Denies:: Cancer, Diabetes Mellitus Type 1, Hypertension, Internal Pacemaker, MRSA *Have you ever received a pneumonia vaccine?: Yes *Have you received a flu vaccine this season?: No Other Medical History: Reports: Arthritis (osteo), Cataracts, Sinus Problems Laterality Cases: Left: Other Other Surgeries: Yes: Colonoscopy, Tubal Ligation, Other (ECTOPIC ). No: Pacemaker Amputation: No Fractures: No - *Social History Educational Level: Attended High School Smoking Status: Current every day smoker Tobacco Type: cigarettes # Packs/Day (cigarettes): 1 #Yrs smoked (if former smoker): 43 Alcohol Intake: current Alcohol Intake Frequency:: 0-2 drinks per day Substance Use Type: denies use *Occupational Status:: disabled Housing: house Household Members: family *Travel in the last 8 weeks: None - Psychiatric History Expresses thoughts of harming self/others: None Suicide Plan Description: No Plan Family Hx:: Asthma, Cancer, Coronary Artery Disease, Diabetes, Heart Attack, Hyperlipidemia, Hypertension, Stroke, Thyroid Disorder Review of Systems - Review of Systems Review of systems:: pertinent systems reviewed and negative unless documented below - Constitutional Reports anorexia, Denies body ache(s), Denies chills, Denies fever(s) - *Cardiovascular Denies chest pain - *Respiratory Reports change in phlegm color, Reports chest congestion, Reports cough, Reports shortness of breath, Denies coughing up blood - *Gastrointestinal Reports abdominal pain, Reports belching, Reports excessive passing of gas - *Neurologic Denies headache(s) Meds Home Medications Medication Instructions Recorded Confirmed Type digoxin 250 mcg tablet 250 mcg PO DAILY 30 Days #30 09/11/17 01/22/19 History Insulin Degludec [Tresiba 25 unit SQ HS 05/25/18 01/22/19 History Flextouch U-200] Insulin Lispro [Humalog Kwikpen 25 unit SQ AC 05/25/18 01/22/19 History U-100] Albuterol Sulfate [Albuterol HFA 1 - 2 puffs IH Q4-6H PRN #1 inh 12/13/18 01/22/19 Rx Inhaler] Fluticasone Propionate [Flonase 1 spray NS NEEDED PRN 01/22/19 01/22/19 His tory Allergy Relief NS] Furosemide [Furosemide 80mg Tab] 80 mg PO NEEDED PRN 01/22/19 01/22/19 History Promethazine HCl [Phenergan 25mg 25 mg PO BIDP PRN 01/22/19 01/22/19 History tab] Vit D3/Folic Acid/B2/B6/B12 1 each PO DAILY 01/22/19 01/22/19 History [Folgard Tablet] predniSONE [Prednisone 5mg 5 mg PO DAILY 01/22/19 01/22/19 History Tab] Allergies Allergy/AdvReac Type Severity Reaction Status Date / Time amoxicillin [AMOXICILLIN] Allergy Intermediate I-RASH Verified 02/25/18 12:49 azithromycin [AZITHROMYCIN] Allergy Intermediate I-RASH Verified 02/25/18 12:49 doxycycline [DOXYCYCLINE] Allergy Intermediate I-RASH Verified 02/25/18 12:49 levofloxacin [LEVOFLOXACIN] Allergy Intermediate NA-NAUSEA/V Verified 02/25/18 12:49 OMITING Penicillins [PENICILLINS] Allergy Intermediate I-RASH Verified 02/25/18 12:49 propoxyphene [PROPOXYPHENE] Allergy Intermediate NA-NAUSEA/V Verified 02/25/18 12:49 OMITING Sulfa (Sulfonamide Allergy Intermediate NA-NAUSEA/V Verified 02/25/18 12:49 Antibiotics) OMITING [SULFA (SULFONAMIDE ANTIBIOTICS)] trimethoprim [TRIMETHOPRIM] Allergy Intermediate NA-NAUSEA/V Verified 02/25/18 12:49 OMITING ibuprofen [IBUPROFEN] Allergy Mild NA-NAUSEA/V Verified 02/25/18 12:49 OMITING Quinolones [QUINOLONES] Allergy Unknown Verified 02/25/18 12:49 sulfamethoxazole Allergy Unknown Verified 02/25/18 12:49 [SULFAMETHOXAZOLE] Exam Vital signs and Labs for Last 24 Hours: Temp Pulse Resp BP Pulse Ox 98.1 F 111 H 19 125/52 L 93 L 01/23/19 03:56 01/23/19 06:33 01/23/19 03:56 01/23/19 03:56 01/23/19 06:33 Laboratory Results - last 24 hr 01/22/19 18:04: ABG pH 7.20 L*, ABG pCO2 25.3 L, ABG pO2 81.8, ABG HCO3 9.6 L, ABG Total CO2 10.4 L, ABG O2 Saturation 95, ABG Base Excess -18.4 L 01/22/19 18:21: Digoxin 0.28 L 01/22/19 18:24: WBC 9.1, RBC 4.27, Hgb 13.3, Hct 42.8, MCV 100.1 H, MCH 31.1, MCHC 31.0 L, RDW 12.9, Plt Count 218, MPV 8.0, Neut % (Auto) 71.5, Lymph % (Auto) 19.8, [place] % (Auto) 6.2, Eos % (Auto) 2.3, Baso % (Auto) 0.3, Neut # (Auto) 6.5, Lymph # (Auto) 1.8, [place] # (Auto) 0.6, Eos # (Auto) 0.2, Baso # (Auto) 0.0 01/22/19 18:24: Sodium 129 L, Potassium 5.0, Chloride 92 L, Carbon Dioxide 11 L, Anion Gap 31.0 H, BUN 37 H, Creatinine 1.59 H, Estimated Creat Clear 40, Estimated GFR 33 L, Est GFR ( Amer) 40 L, Glucose 61 L, Calcium 9.2, Total Bilirubin 0.9, AST 26, ALT 25, Alkaline Phosphatase 80, Troponin I 0.18 H, Total Protein 6.9, Albumin 3.4, Globulin 3.5 H, Albumin/Globulin Ratio 1.0 L 01/22/19 18:24: Lactate 0.6 01/22/19 18:24: Acetone Level Small 01/22/19 19:46: Urine Color Yellow, Urine Appearance Clear, Urine pH 6.0, Ur Specific [place] 1.025, Urine Protein Trace, Urine Glucose (UA) Negative, Urine Ketones 2+, Urine Blood Negative, Urine Nitrate Negative, Urine Bilirubin Negative, Urine Urobilinogen 1.0, Ur Leukocyte Esterase Negative, Urine WBC Occasional, Ur Squamous Epith Cells 3-5 01/22/19 21:18: POC Glucose 74 01/22/19 23:10: Troponin I < 0.02 01/23/19 05:15: Sodium 132 L, Potassium 6.3 H* D, Chloride 98, Carbon Dioxide 10 L, Anion Gap 30.3 H, BUN 31 H, Creatinine 1.45 H, Estimated Creat Clear 41, Estimated GFR 37 L, Est GFR ( Amer) 45 L, Glucose 160 H D, Calcium 9.1, Troponin I < 0.02 01/23/19 05:15: WBC 5.5 D, RBC 4.17 L, Hgb 13.0, Hct 43.0, MCV 102.9 H, MCH 31.2, MCHC 30.3 L, RDW 12.8, Plt Count 198, MPV 7.8, Neut % (Auto) 91.3 H, Lymph % (Auto) 7.0 L, [place] % (Auto) 1.3 L, Eos % (Auto) 0.1, Baso % (Auto) 0.2, Neut # (Auto) 5.0, Lymph # (Auto) 0.4 L, [place] # (Auto) 0.1, Eos # (Auto) 0.0, Baso # (Auto) 0.0, Total Counted 100, Neutrophils % (Manual) 84 H, Band Neutrophils % 11.0 H, Lymphocytes % (Manual) 5 L, Platelet Estimate Normal, Hypochromasia 2+, Macrocytosis 2+ I & O for Last 24 hours: Intake & Output 01/20/19 01/21/19 01/22/19 01/23/19 11:59 11:59 11:59 11:59 Intake Total 2722 / 2722 Balance 2722 / 2722 Weight 139 lb 8 oz Microbiology Reports for the Last 24 Hours: Microbiology 01/22/19 22:05 Sputum - Expectorated Sputum Gram Stain - Final Narrative: Patient is sleeping soundly when I enter the room laying on her left side. She was not difficult to awaken. She is oriented to person, place, time. HEENT exam reveals reactive pupils with normal external ears. Oropharynx is dry and patient is edentulous. Neck is without lymphadenopathy, carotid bruits, jugular venous distention. Lungs have inspiratory rhonchi with rales at the posterior medial left base as well as diffuse wheezes anteriorly and posteriorly. Heart has a regular rate and rhythm. Abdomen is soft with mild tenderness of the left epigastrium, left upper quadrant, left lower quadrant. Extremities are warm to the touch and she has no lower extremity edema. Neurologically there are no deficits Assessment and Plan (1) COPD (chronic obstructive pulmonary disease) with acute bronchitis Current visit: Yes Status: Acute Category: Medical Code(s): J44.0 - Chronic obstructive pulmonary disease with acute lower respiratory infection; J20.9 - Acute bronchitis, unspecified Patient has been admitted and placed on IV Solu-Medrol with duo nebs ordered 4 times daily. She will be continued on broad-spectrum antibiotics as sputum culture at present appears to have 2 organisms. (2) Metabolic acidosis Current visit: Yes Status: Acute Category: Medical Code(s): E87.2 - Acidosis Etiology of this is unclear. Patient does have a history of moderate to heavy alcohol use (3) Hypoglycemia Current visit: Yes Status: Acute Category: Medical Code(s): E16.2 - Hypoglycemia, unspecified Anticipate patient's blood sugars will rise while on steroids. Low intensity sliding scale insulin has been ordered (4) Nausea & vomiting Current visit: Yes Status: Acute Category: Medical Code(s): R11.2 - Nausea with vomiting, unspecified Etiology could be gastritis from chronic steroid use and/or alcohol use. Patient has an abnormal gallbladder as well. She will be started on Protonix IV twice daily with a full liquid diet (5) Elevated troponin Current visit: No Status: Acute Category: Medical Code(s): R74.8 - Abnormal levels of other serum enzymes (6) Hyperkalemia Current visit: No Status: Acute Category: Medical Code(s): E87.5 - Hyperkalemia Patient is on IV fluids and she will be given a single dose of Lasix 20 mg IV with repeat potassium this afternoon. Anticipate use of breathing treatments and insulin will also help treat hyperkalemia
--- NOTE | 2019-01-23 10:25 | Pharmacy Consult Notes ---
[facility] Pharmacy VTE Monitoring - Patient Demographics Admission date: 01/22/19 Report Date: 01/23/19 Time: 10:24 Allergies/Adverse Reactions: Patient Allergies amoxicillin [AMOXICILLIN] Allergy (Intermediate, Verified 02/25/18 12:49) I-RASH azithromycin [AZITHROMYCIN] Allergy (Intermediate, Verified 02/25/18 12:49) I-RASH doxycycline [DOXYCYCLINE] Allergy (Intermediate, Verified 02/25/18 12:49) I-RASH levofloxacin [LEVOFLOXACIN] Allergy (Intermediate, Verified 02/25/18 12:49) NA-NAUSEA/VOMITING Penicillins [PENICILLINS] Allergy (Intermediate, Verified 02/25/18 12:49) I-RASH propoxyphene [PROPOXYPHENE] Allergy (Intermediate, Verified 02/25/18 12:49) NA-NAUSEA/VOMITING Sulfa (Sulfonamide Antibiotics) [SULFA (SULFONAMIDE ANTIBIOTICS)] Allergy (Intermediate, Verified 02/25/18 12:49) NA-NAUSEA/VOMITING trimethoprim [TRIMETHOPRIM] Allergy (Intermediate, Verified 02/25/18 12:49) NA-NAUSEA/VOMITING ibuprofen [IBUPROFEN] Allergy (Mild, Verified 02/25/18 12:49) NA-NAUSEA/VOMITING Quinolones [QUINOLONES] Allergy (Unknown, Verified 02/25/18 12:49) sulfamethoxazole [SULFAMETHOXAZOLE] Allergy (Unknown, Verified 02/25/18 12:49) Height: 1.63 m Weight: 63.276 kg Patient Problems: Current Active Problems (Updated 01/23/19 @ 07:26 by Rodolfo Mejia MD) COPD (chronic obstructive pulmonary disease) with acute bronchitis (Acute) Metabolic acidosis (Acute) Elevated troponin I level (Acute) Nausea & vomiting (Acute) Diabetes mellitus (Acute) Hypoglycemia (Acute) - VTE Risk Labs: VTE Related Lab Results Hgb 13.0 g/dL (12.2-16.2) 01/23/19 05:15 Hct 43.0 % (37.0-47.0) 01/23/19 05:15 Plt Count 198 K/mm3 (142-424) 01/23/19 05:15 BUN 31 mg/dL (7-18) H 01/23/19 05:15 Creatinine 1.45 mg/dL (0.55-1.02) H 01/23/19 05:15 Estimated Creat Clear 41 mL/min (50-200) 01/23/19 05:15 Was VTE Risk Assessment Performed: Yes VTE Score: 4 VTE Risk Level: Low Risk - Prophylaxis VTE Prophylaxis Ordered?: Yes Types of VTE Prophylaxis: TEDS Knee High Location of Applied Device: Bilateral Lower Extremeties
--- NOTE | 2019-01-23 10:31 | Pharmacy Consult Notes ---
- Pharmacy Consult Date: 01/23/19 Time: 10:31 Referring provider: DR. CORONA Reason for Consult:: VANCOMYCIN DOSING Allergies and ADEs:: Allergies Allergy/AdvReac Type Severity Reaction Status Date / Time amoxicillin [AMOXICILLIN] Allergy Intermediate I-RASH Verified 02/25/18 12:49 azithromycin [AZITHROMYCIN] Allergy Intermediate I-RASH Verified 02/25/18 12:49 doxycycline [DOXYCYCLINE] Allergy Intermediate I-RASH Verified 02/25/18 12:49 levofloxacin [LEVOFLOXACIN] Allergy Intermediate NA-NAUSEA/V Verified 02/25/18 12:49 OMITING Penicillins [PENICILLINS] Allergy Intermediate I-RASH Verified 02/25/18 12:49 propoxyphene [PROPOXYPHENE] Allergy Intermediate NA-NAUSEA/V Verified 02/25/18 12:49 OMITING Sulfa (Sulfonamide Allergy Intermediate NA-NAUSEA/V Verified 02/25/18 12:49 Antibiotics) OMITING [SULFA (SULFONAMIDE ANTIBIOTICS)] trimethoprim [TRIMETHOPRIM] Allergy Intermediate NA-NAUSEA/V Verified 02/25/18 12:49 OMITING ibuprofen [IBUPROFEN] Allergy Mild NA-NAUSEA/V Verified 02/25/18 12:49 OMITING Quinolones [QUINOLONES] Allergy Unknown Verified 02/25/18 12:49 sulfamethoxazole Allergy Unknown Verified 02/25/18 12:49 [SULFAMETHOXAZOLE] Home Medications:: Home Medications Medication Instructions Recorded Confirmed Type digoxin 250 mcg tablet 250 mcg PO DAILY 30 Days #30 09/11/17 01/22/19 History Insulin Degludec [Tresiba 25 unit SQ HS 05/25/18 01/22/19 History Flextouch U-200] Insulin Lispro [Humalog Kwikpen 25 unit SQ AC 05/25/18 01/22/19 History U-100] Albuterol Sulfate [Albuterol HFA 1 - 2 puffs IH Q4-6H PRN #1 inh 12/13/18 01/22/19 Rx Inhaler] Fluticasone Propionate [Flonase 1 spray NS NEEDED PRN 01/22/19 01/22/19 History Allergy Relief NS] Furosemide [Furosemide 80mg Tab] 80 mg PO NEEDED PRN 01/22/19 01/22/19 History Promethazine HCl [Phenergan 25mg 25 mg PO BIDP PRN 01/22/19 01/22/19 History tab] Vit D3/Folic Acid/B2/B6/B12 1 each PO DAILY 01/22/19 01/22/19 History [Folgard Tablet] predniSONE [Prednisone 5mg 5 mg PO DAILY 01/22/19 01/22/19 History Tab] Height: 1.63 m Weight: 63.276 kg Laboratory Results:: Laboratory Results - last 24 hr 01/22/19 18:04: ABG pH 7.20 L*, ABG pCO2 25.3 L, ABG pO2 81.8, ABG HCO3 9.6 L, ABG Total CO2 10.4 L, ABG O2 Saturation 95, ABG Base Excess -18.4 L 01/22/19 18:21: Digoxin 0.28 L 01/22/19 18:24: WBC 9.1, RBC 4.27, Hgb 13.3, Hct 42.8, MCV 100.1 H, MCH 31.1, MCHC 31.0 L, RDW 12.9, Plt Count 218, MPV 8.0, Neut % (Auto) 71.5, Lymph % (Auto) 19.8, [place] % (Auto) 6.2, Eos % (Auto) 2.3, Baso % (Auto) 0.3, Neut # (Auto) 6.5, Lymph # (Auto) 1.8, [place] # (Auto) 0.6, Eos # (Auto) 0.2, Baso # (Auto) 0.0 01/22/19 18:24: Sodium 129 L, Potassium 5.0, Chloride 92 L, Carbon Dioxide 11 L, Anion Gap 31.0 H, BUN 37 H, Creatinine 1.59 H, Estimated Creat Clear 40, Estimated GFR 33 L, Est GFR ( Amer) 40 L, Glucose 61 L, Calcium 9.2, Total Bilirubin 0.9, AST 26, ALT 25, Alkaline Phosphatase 80, Troponin I 0.18 H, Total Protein 6.9, Albumin 3.4, Globulin 3.5 H, Albumin/Globulin Ratio 1.0 L 01/22/19 18:24: Lactate 0.6 01/22/19 18:24: Acetone Level Small 01/22/19 19:46: Urine Color Yellow, Urine Appearance Clear, Urine pH 6.0, Ur Specific [place] 1.025, Urine Protein Trace, Urine Glucose (UA) Negative, Urine Ketones 2+, Urine Blood Negative, Urine Nitrate Negative, Urine Bilirubin Negative, Urine Urobilinogen 1.0, Ur Leukocyte Esterase Negative, Urine WBC Occasional, Ur Squamous Epith Cells 3-5 01/22/19 21:18: POC Glucose 74 01/22/19 23:10: Troponin I < 0.02 01/23/19 05:15: Sodium 132 L, Potassium 6.3 H* D, Chloride 98, Carbon Dioxide 10 L, Anion Gap 30.3 H, BUN 31 H, Creatinine 1.45 H, Estimated Creat Clear 41, Estimated GFR 37 L, Est GFR ( Amer) 45 L, Glucose 160 H D, Calcium 9.1, Troponin I < 0.02 01/23/19 05:15: WBC 5.5 D, RBC 4.17 L, Hgb 13.0, Hct 43.0, MCV 102.9 H, MCH 31.2, MCHC 30.3 L, RDW 12.8, Plt Count 198, MPV 7.8, Neut % (Auto) 91.3 H, Lymph % (Auto) 7.0 L, [place] % (Auto) 1.3 L, Eos % (Auto) 0.1, Baso % (Auto) 0.2, Neut # (Auto) 5.0, Lymph # (Auto) 0.4 L, [place] # (Auto) 0.1, Eos # (Auto) 0.0, Baso # (A uto) 0.0, Total Counted 100, Neutrophils % (Manual) 84 H, Band Neutrophils % 11.0 H, Lymphocytes % (Manual) 5 L, Platelet Estimate Normal, Hypochromasia 2+, Macrocytosis 2+ 01/23/19 05:15: Plasma/Serum Alcohol 0 Medical History: Reports:: Congestive Heart Failure, Chronic Obstructive Pulmonary Disease (COPD), Diabetes Mellitus Type 2, Hyperlipidemia Denies:: Cancer, Diabetes Mellitus Type 1, Hypertension, Internal Pacemaker, MRSA Assessment and Plan (1) COPD (chronic obstructive pulmonary disease) with acute bronchitis Current visit: Yes Status: Acute Category: Medical Code(s): J44.0 - Chronic obstructive pulmonary disease with acute lower respiratory infection; J20.9 - Acute bronchitis, unspecified (2) Metabolic acidosis Current visit: Yes Status: Acute Category: Medical Code(s): E87.2 - Acidosis (3) Hypoglycemia Current visit: Yes Status: Acute Category: Medical Code(s): E16.2 - Hypoglycemia, unspecified (4) Nausea & vomiting Current visit: Yes Status: Acute Category: Medical Code(s): R11.2 - Nausea with vomiting, unspecified (5) Elevated troponin Current visit: No Status: Acute Category: Medical Code(s): R74.8 - Abnormal levels of other serum enzymes (6) Hyperkalemia Current visit: No Status: Acute Category: Medical Code(s): E87.5 - Hyperkalemia - Assessment and plan all Dx Assessment and Plan for all problems:: BASED ON PATIENT FACTORS, RECOMMEND VANCOMYCIN 1 GM IV Q24H. WILL OBTAIN VANCOMYCIN TROUGH LEVEL TOMORROW PRIOR TO 3RD DOSE. PHARMACY WILL FOLLOW DAILY AND ADJUST APPROPRIATE.
[2019-01-23 13:21] LABS: Anion Gap 21.7 mEq/L (5-15); Calcium 8.3 mg/dL (8.5-10.1)
[2019-01-24 06:28] LABS: Eosinophils % 0.8 % (0.1-12.0); Hematocrit 33.1 % (37.0-47.0); Hemoglobin 10.6 g/dL (12.2-16.2); Lymphocytes # 0.2 K/mm3 (0.7-4.5); Lymphocytes % 5.7 % (10-50); Mean Corpuscular Volume 97.7 fl (81-99); Mean Platelet Volume 7.8 fl (7.4-10.4); Monocytes # 0.1 K/mm3 (0.1-1.0); Monocytes % 2.9 % (1.7-9.3); Neutrophils # 3.7 K/mm3 (1.8-7.8); Neutrophils % 90.5 % (37.0-80.0); Platelet Count 179 K/mm3 (142-424); Red Blood Count 3.38 M/mm3 (4.20-5.40); Red Cell Distribution Width 13.2 % (11.5-17.5)
[2019-01-24 06:39] LABS: Anion Gap 12.1 mEq/L (5-15); Calcium 8.3 mg/dL (8.5-10.1)
[2019-01-24 06:48] LABS: Lymphocytes % 6 % (10-50); Neutrophils % 86 % (42-76); Polychromasia 1+; Rouleaux 1+; Total Cells Counted 100
--- NOTE | 2019-01-24 07:04 | Progress Note ---
Internal Medicine - PN: Subj *Date: 01/24/19 *Time: 07:02 Interval history: Patient complains of coughing this morning. She feels like shortness of breath has improved. She has been able to ambulate to the bathroom and back without assistance. Nursing staff reports patient slept well. Exam Vital signs and Labs for Last 24 Hours: Temp Pulse Resp BP Pulse Ox 98.1 F 104 H 19 132/70 92 L 01/24/19 04:00 01/24/19 04:00 01/24/19 04:00 01/24/19 04:00 01/24/19 04:00 Laboratory Results - last 24 hr 01/23/19 05:15: Plasma/Serum Alcohol 0 01/23/19 06:18: POC Glucose 167 H 01/23/19 11:36: POC Glucose 238 H 01/23/19 13:02: Sodium 129 L, Potassium 4.7 D, Chloride 98, Carbon Dioxide 14 L D, Anion Gap 21.7 H, BUN 31 H, Creatinine 1.55 H, Estimated Creat Clear 39, Estimated GFR 34 L, Est GFR ( Amer) 41 L, Glucose 328 H D, Calcium 8.3 L 01/23/19 16:49: POC Glucose 291 H 01/23/19 21:57: POC Glucose 353 H* 01/24/19 06:00: WBC 4.0 L D, RBC 3.38 L, Hgb 10.6 L, Hct 33.1 L, MCV 97.7, MCH 31.3 H, MCHC 32.0, RDW 13.2, Plt Count 179, MPV 7.8, Neut % (Auto) 90.5 H, Lymph % (Auto) 5.7 L, [place] % (Auto) 2.9, Eos % (Auto) 0.8, Baso % (Auto) 0.0 L, Neut # (Auto) 3.7, Lymph # (Auto) 0.2 L, [place] # (Auto) 0.1, Eos # (Auto) 0.0, Baso # (Auto) 0.0, Total Counted 100, Neutrophils % (Manual) 86 H, Band Neutrophils % 8.0, Lymphocytes % (Manual) 6 L, Platelet Estimate Normal, Polychromasia 1+, Rouleaux 1+ 01/24/19 06:00: Sodium 136, Potassium 4.1, Chloride 106, Carbon Dioxide 22 D, Anion Gap 12.1, BUN 23 H D, Creatinine 0.95 D, Estimated Creat Clear 63, Estimated GFR 60, Est GFR ( Amer) 73 D, Glucose 265 H, Calcium 8.3 L 01/24/19 06:01: POC Glucose 276 H I & O for Last 24 hours: Intake & Output 01/21/19 01/22/19 01/23/19 01/24/19 11:59 11:59 11:59 11:59 Intake Total 308 / 3082 4741 / 474 Balance 308 / 3084740 / 4740 Weight 139 lb 8 oz 140 lb 4 oz Narrative: Patient is awake and sitting up in bed. Lungs this morning have distant breath sounds with poor aeration and expiratory wheezes. Rhonchi that were present yesterday have resolved. Heart has a regular rate and rhythm. Abdomen is soft. Lower extremities have no edema Assessment and Plan (1) COPD (chronic obstructive pulmonary disease) with acute bronchitis Current visit: Yes Status: Acute Category: Medical Code(s): J44.0 - Chronic obstructive pulmonary disease with acute lower respiratory infection; J20.9 - Acute bronchitis, unspecified (2) Metabolic acidosis Current visit: Yes Status: Acute Category: Medical Code(s): E87.2 - Acidosis (3) Hypoglycemia Current visit: Yes Status: Resolved Category: Medical Code(s): E16.2 - Hypoglycemia, unspecified (4) Nausea & vomiting Current visit: Yes Status: Acute Category: Medical Code(s): R11.2 - Nausea with vomiting, unspecified (5) Elevated troponin Current visit: No Status: Resolved Category: Medical Code(s): R74.8 - Abnormal levels of other serum enzymes (6) Hyperkalemia Current visit: No Status: Resolved Category: Medical Code(s): E87.5 - Hyperkalemia - Assessment and plan all Dx Assessment and Plan for all problems:: 1. DC IV fluids and advance diet 2. Increase sliding scale intensity and restart long-acting insulin this evening 3. Transition from IV to oral steroids 4. Await blood cultures, anticipate results tomorrow
[2019-01-25 06:50] LABS: Anion Gap 15.3 mEq/L (5-15); Calcium 8.3 mg/dL (8.5-10.1)
--- NOTE | 2019-01-25 07:08 | Discharge Summary ---
General - General Admission date:: 01/22/19 Discharge date: 01/25/19 HPI HPI: 58-year-old female with history of diabetes presented to the emergency department with complaints of malaise, cough with mild dyspnea, abdominal pain and nausea since Friday (January 19). Work-up in the emergency department revealed hypoglycemia with a metabolic acidosis and physical findings consistent with acute bronchitis on top of COPD patient was weak with abnormal lung exam. pH of 7.2 on a blood gas. Decision was made to admit the patient for IV fluids, IV antibiotics for her bronchitis with suspicion of early sepsis despite normal lactate. Patient also had elevated troponin.. This morning the patient confirms the information given to the emergency department. At present her biggest complaint is nausea. She does admit to cough with yellow sputum production. She also admits to very poor appetite with minimal activity over the last 4 days. Hospital Course Hospital Course: Patient was admitted and given IV fluids with close monitoring of her blood sugar. Imaging did not reveal any acute pulmonary pathology but patient's symptoms were consistent with acute bronchitis and COPD exacerbation. She was started on IV antibiotics as well as IV steroids. Patient responded well to IV antibiotics and steroids. Within 48 hours her acidosis completely corrected. Hypoglycemia corrected with the addition of steroids. Hyperkalemia developed likely secondary to the acidosis and this responded to albuterol aerosols, a single dose of IV Lasix 20 mg, and use of insulin for the patient's diabetes. Over the course of hospitalization patient's respiratory symptoms improved a little each day. Sputum culture was growing a gram-positive cocci at discharge. Patient will be discharged home on Omnicef. Patient will follow-up in the office as previously scheduled for her routine diabetic visit which patient believes is scheduled within the next week or 2. Objective Vital signs: Temp Pulse Resp BP Pulse Ox 98.5 F 77 19 111/61 98 01/25/19 04:28 01/25/19 04:28 01/25/19 04:28 01/25/19 04:28 01/25/19 04:28 no acute distress - *Routine Respiratory Exam Present: rhonchi, wheezes - *Routine Cardiovascular Exam Present: RRR, Normal S1, Normal S2 Results Labs on day of discharge: Labs from last 24 hours 01/25/19 01/25/19 01/24/19 06:10 05:41 21:13 Sodium 139 Potassium 3.3 L Chloride 104 Carbon Dioxide 23 Anion Gap 15.3 H BUN 23 H Creatinine 0.85 Estimated Creat Clear 75 Estimated GFR 68 Est GFR ( Amer) 83 Glucose 162 H POC Glucose 170 H 307 H* Calcium 8.3 L Vancomycin Trough 01/24/19 01/24/19 01/24/19 20:53 16:20 11:14 Sodium Potassium Chloride Carbon Dioxide Anion Gap BUN Creatinine Estimated Creat Clear Estimated GFR Est GFR ( Amer) Glucose POC Glucose 280 H 357 H* Calcium Vancomycin Trough 4.2 L Preliminary micro results at discharge 01/22/19 19:11 Blood Culture - Preliminary Blood NO GROWTH AFTER 48 HOURS 01/22/19 18:24 Blood Culture - Preliminary Blood NO GROWTH AFTER 48 HOURS 01/22/19 22:05 Sputum Culture - Preliminary Sputum - Expectorated Sputum Gram Positive Cocci DS: Diagnosis - Discharge Diagnosis (1) COPD (chronic obstructive pulmonary disease) with acute bronchitis Status: Acute (2) Metabolic acidosis Status: Acute (3) Hypoglycemia Status: Resolved (4) Nausea & vomiting Status: Acute (5) Elevated troponin Status: Resolved (6) Hyperkalemia Status: Resolved Discharge Plan - Patient Discharge Instructions ACTIVITY: Continue current activity DIET: continue same diet Patient Instructions: DI for Chronic Obstructive Pulmonary Disease, DI for Hypoglycemia - Follow up Plan Follow up with: Kristi Silvestre APRN [Nurse Practitioner] - Disposition: Home, Self-Snf Medications: Home Medications Medication Instructions Recorded Confirmed Type digoxin 250 mcg tablet 250 mcg PO DAILY 30 Days #30 09/11/17 01/22/19 History Insulin Degludec [Tresiba 25 unit SQ HS 05/25/18 01/22/19 History Flextouch U-200] Insulin Lispro [Humalog Kwikpen 25 unit SQ AC 05/25/18 01/22/19 History U-100] Albuterol Sulfate [Albuterol HFA 1 - 2 puffs IH Q4-6H PRN #1 inh 12/13/18 01/22/19 Rx Inhaler] Fluticasone Propionate [Flonase 1 spray NS BIDP PRN 01/22/19 01/23/19 History Allergy Relief NS] Furosemide [Furosemide 80mg Tab] 80 mg PO NEEDED PRN 01/22/19 01/22/19 History Promethazine HCl [Phenergan 25mg 25 mg PO BIDP PRN 01/22/19 01/22/19 History tab] Vit D3/Folic Acid/B2/B6/B12 1 each PO DAILY 01/22/19 01/22/19 History [Folgard Tablet] predniSONE [Prednisone 5mg 5 mg PO DAILY 01/22/19 01/22/19 History Tab] Ipratropium/Albuterol Sulfate 1 puff IH QID 01/23/19 01/23/19 History [Combivent Respimat Inh] PARoxetine HCl [Paxil] 30 mg PO DAILY 01/23/19 01/23/19 History Pantoprazole Sodium [Protonix 40mg 40 mg PO HS 01/23/19 01/23/19 History tablet] diazePAM [Valium 10mg tablet] 10 mg PO TIDP PRN 01/23/19 01/23/19 History Cefdinir [Omnicef 300mg Capsule] 300 mg PO BID #8 cap 01/25/19 Rx predniSONE [Deltasone 20mg 20 mg PO DAILY #5 tab 01/25/19 Rx tablet] Prescriptions/Medication Reconciliation: New predniSONE [Deltasone 20mg tablet] 20 mg PO DAILY #5 tab Cefdinir [Omnicef 300mg Capsule] 300 mg PO BID #8 cap Continued digoxin 250 mcg tablet 250 mcg PO DAILY 30 Days #30 Insulin Lispro [Humalog Kwikpen U-100] 25 unit SQ AC Albuterol Sulfate [Albuterol HFA Inhaler] 1 - 2 puffs IH Q4-6H PRN #1 inh PRN Reason: Shortness Of Breath Or Wheezing Promethazine HCl [Phenergan 25mg tab] 25 mg PO BIDP PRN PRN Reason: Nausea And Vomiting Furosemide [Furosemide 80mg Tab] 80 mg PO NEEDED PRN PRN Reason: FLUID OVERLOAD Vit D3/Folic Acid/B2/B6/B12 [Folgard Tablet] 1 each PO DAILY Pantoprazole Sodium [Protonix 40mg tablet] 40 mg PO HS Insulin Degludec [Tresiba Flextouch U-200] 25 unit SQ HS predniSONE [Prednisone 5mg Tab] 5 mg PO DAILY Fluticasone Propionate [Flonase Allergy Relief NS] 1 spray NS BIDP PRN PRN Reason: Congestion PARoxetine HCl [Paxil] 30 mg PO DAILY diazePAM [Valium 10mg tablet] 10 mg PO TIDP PRN PRN Reason: Anxiety Ipratropium/Albuterol Sulfate [Combivent Respimat Inh] 1 puff IH QID
== END 2019-01-25 11:00 | disposition home or self-care (01) | DRG 191 ==
LOC: 2ND 17:53 → ER 17:53 → OBSVTOIN 21:08 → 2ND 21:09
PROVIDERS: ADMIT Emergency Medicine; ATTEND Family Medicine
CPT/HCPCS: 36415; 71250; 74176; 80048; 80053; 80162; 80202; 81001; 82009; 82803; 82962; 83605; 84484; 85007; 85025; 87040; 87070; 87077; 87205; 93005; 94640; 94761; 96365; 96367; 96375; 99285; J1335; J3370

== ENCOUNTER → 2019-05-27 10:32 | Outpatient (CLI) | payer OTHER, SELFPAY ==
--- NOTE | 2019-05-27 11:16 | XR_ITS ---
PROCEDURE: XR CERVICAL SPINE 5V CLINICAL INDICATION: OSTEOARTHRITIS Neck pain, bilateral arm pain COMPARISON: No exams were available for comparison FINDINGS: Normal alignment. No fracture or dislocation. No foraminal narrowing. C7 is not well visualized. There is a faint outline of C7 as seen on the lateral view. There is minimal anterolisthesis of C6 on C7 of 3 mm. Small osteophytes are present at C4 and C5. Bilateral carotid artery calcifications are present IMPRESSION: Mild degenerative changes, no acute finding Dictated by: Lan Guzman MD 05/27/2019 15:13 Electronically signed by Lan Guzman MD in [facility] 05/27/2019 15:13
== END ==
PROVIDERS: PCP Family Medicine; Visit Provider Family Medicine
DX: M47.12 Other spondylosis with myelopathy, cervical region (principal)
CPT/HCPCS: 72050

== ENCOUNTER → 2019-10-18 14:56 | Outpatient (CLI) | payer OTHER, SELFPAY ==
--- NOTE | 2019-10-18 | XR_ITS ---
PROCEDURE: XR CHEST AP CLINICAL HISTORY: Shortness of breath fever COMPARISON: CXR2V XR chest 2V from 11/07/2017 CXR1VP XR chest portable from 05/24/2018 CXR2V XR chest 2V from 10/02/[address] chest wo con from 01/22/2019 FINDINGS: The heart is not enlarged. There is an atherosclerotic aorta without CHF. There are diffusely accentuated interstitial markings similar to previous exam likely due to chronic pneumonitis. A new opacity measuring up to 2.7 centimeters is seen in the right lung base at the hemidiaphragm and overlying the posterior 10th rib. This could represent a focal infiltrate, callus associated with healed rib fracture or developing pulmonary nodule. An indeterminate subcentimeter nodule overlying the right apex over the anterior 1st rib is also noted. Follow-up is recommended. . No acute bony abnormalities. IMPRESSION: New opacity right lung base at hemidiaphragm. Pneumonia, callus associated with healed rib fracture, developing pulmonary nodule or artifact would have to be considered. Indeterminate subcentimeter nodule also seen overlying right apex requiring follow-up. Dictated by: Meng Godinez 10/18/2019 16:22 Electronically signed by Meng Godinez in [facility] 10/18/2019 16:22
[2019-10-18 15:20] LABS: Basophils % 0.3 % (0.1-2.0); Eosinophils # 0.1 K/mm3 (0.0-0.4); Eosinophils % 0.9 % (0.1-12.0); Hematocrit 37.5 % (37.0-47.0); Hemoglobin 12.3 g/dL (12.2-16.2); Lymphocytes # 1.1 K/mm3 (0.7-4.5); Lymphocytes % 11.8 % (10-50); Mean Corpuscular HGB Conc 32.6 g/dL (31.8-35.4); Mean Corpuscular Hemoglobin 31.7 pg (27.0-31.2); Mean Corpuscular Volume 97.2 fl (81-99); Mean Platelet Volume 8.2 fl (7.4-10.4); Monocytes # 0.5 K/mm3 (0.1-1.0); Monocytes % 5.6 % (1.7-9.3); Neutrophils # 7.8 K/mm3 (1.8-7.8); Neutrophils % 81.5 % (37.0-80.0); Platelet Count 216 K/mm3 (142-424); Red Blood Count 3.86 M/mm3 (4.20-5.40); Red Cell Distribution Width 13.6 % (11.5-17.5); White Blood Count 9.6 K/mm3 (4.8-10.8)
[2019-10-18 19:47] LABS: Chloride 93 mmol/L (98-107); Potassium 5.2 mmoL/L (3.5-5.1); Sodium 127 mmol/L (136-145)
[2019-10-18 19:50] LABS: Alanine Aminotransferase 15 U/L (12-78); Albumin Level 4.1 g/dl (3.5-5.0); Albumin/Globulin Ratio 1.4 (1.1-1.8); Alkaline Phosphatase 75 U/L (38-126); Anion Gap 18.2 mEq/L (5-15); Aspartate Amino Transferase 30 U/L (14-36); Bilirubin,Total 0.6 mg/dl (0.2-1.3); Blood Urea Nitrogen 22 mg/dl (7-17); Calcium 9.4 mg/dl (8.4-10.2); Carbon Dioxide 21 mmol/L (22.0-30.0); Estimated Glomerular Filt Rate 64 ml/min (>60); GFR (African American) 77 ML/MIN (>60); Glucose 128 mg/dl (74-100); Total Protein,Serum 7.1 g/dl (6.3-8.2)
== END ==
PROVIDERS: Visit Provider Nurse Practitioner Family
DX: R50.9 Fever, unspecified (principal); R06.02 Shortness of breath; J18.9 Pneumonia, unspecified organism
CPT/HCPCS: 36415; 71045; 80053; 85025

== ENCOUNTER 2019-11-12 11:22 | Emergency (ER) | payer OTHER, SELFPAY ==
[2019-11-12 11:21] VITALS: BP 102/63; PULSE 123; RESP 22; TEMP 36.8; O2SAT 94; BMI 26.6
--- NOTE | 2019-11-12 11:35 | CT_ITS ---
PROCEDURE: CT CHEST WO CON CLINICAL INDICATION: vomiting blood Shortness of air COMPARISON: CTAC CTA-CHEST from 08/23/[address] chest wo con from 01/22/2019 XR CHEST AP from 10/18/2019 CT ABDOMEN PELVIS WO CON from 11/12/2019 TECHNIQUE: Axial images obtained with sagittal and coronal reformats. All CT scans at the facility use one or more dose reduction, viz: automated exposure control, ma/kV adjustment per patient size (including targeted exams where dose is matched to indication, i.e. head), or iterative reconstruction technique. FINDINGS: HEART AND MEDIASTINAL STRUCTURES: There are scattered small mediastinal lymph nodes not significantly changed. There is diffuse thickening of the esophagus throughout its course in the chest greater in the mid and lower esophageal region. LUNGS AND PLEURAL SPACES: COPD changes with scattered areas of scarring. There is a 9 mm nodule in the right upper lobe anteriorly previously measuring 5 mm. There is mild diffuse peripheral subpleural septal thickening consistent with pulmonary fibrosis. There is mild diffuse bronchial thickening. A noncalcified 7 mm nodule is present in the right upper lobe not significantly changed. A new 5 mm nodules present in the right upper lobe centrally BONY STRUCTURES: Chronic wedge compression changes involves T7 UPPER ABDOMEN: Please see abdomen report ADDITIONAL FINDINGS: There is increased density in the left breast superiorly with multiple calcifications. This has a somewhat suspicious appearance and mammography is suggested for further evaluation. There are no previous mammograms available for review. IMPRESSION: 1. COPD with chronic pulmonary fibrosis. 2. Diffuse thickening of the esophagus throughout. This could be inflammatory/infectious or neoplastic. 3. Increased density within the left breast superiorly and medially with diffuse calcifications suspicious for neoplasm. Recommend mammography for further evaluation. 4. 9 mm right apical nodule slightly more prominent from the previous exam and could be due to progressing fibrosis or developing nodule such as neoplasm. Continued follow-up suggested. There is a new 5 mm nodule in the right upper lobe centrally on image number 24 and a stable 7 mm nodule in the right upper lobe posteriorly. Recommend 3 month follow-up to confirm short term stability. Neoplasm is considered. Dictated by: Lan Guzman MD 11/12/2019 13:14 Electronically signed by Lan Guzman MD in [facility] 11/12/2019 13:14
[2019-11-12 11:43] LABS: Microscopic, Urine URINE MICROSCOPIC (MICROSCOPIC)
[2019-11-12 11:46] LABS: Appearance,Urine CLEAR (Clear); Bilirubin,Urine Negative (Negative); Blood, Urine Negative (Negative); Chloride 86 mmol/L (98-107); Color,Urine YELLOW (Yellow); Glucose,Urine (UA) Negative (Negative); Ketones,Urine Negative (Negative); Leukocyte Esterase,Urine Negative (Negative); Nitrate,Urine Negative (Negative); Protein,Urine Negative (Negative); Sodium 124 mmol/L (136-145); Urobilinogen,Urine 0.2 EU/dl (0.2)
[2019-11-12 11:47] LABS: Basophils # 0.1 K/mm3 (0-0.2); Eosinophils # 0.3 K/mm3 (0.0-0.4); Eosinophils % 2.1 % (0.1-12.0); Hematocrit 43.4 % (37.0-47.0); Hemoglobin 14.5 g/dL (12.2-16.2); Lymphocytes # 1.8 K/mm3 (0.7-4.5); Lymphocytes % 15.8 % (10-50); Mean Corpuscular HGB Conc 33.3 g/dL (31.8-35.4); Mean Corpuscular Hemoglobin 31.8 pg (27.0-31.2); Mean Corpuscular Volume 95.4 fl (81-99); Mean Platelet Volume 7.2 fl (7.4-10.4); Monocytes # 0.4 K/mm3 (0.1-1.0); Monocytes % 3.4 % (1.7-9.3); Neutrophils % 77.8 % (37.0-80.0); Occult Blood,Stool Negative (Negative); Platelet Count 190 K/mm3 (142-424); Red Blood Count 4.55 M/mm3 (4.20-5.40); Red Cell Distribution Width 13.7 % (11.5-17.5); White Blood Count 11.5 K/mm3 (4.8-10.8)
[2019-11-12 11:49] LABS: Alanine Aminotransferase 23 U/L (12-78); Albumin Level 4.4 g/dl (3.5-5.0); Albumin/Globulin Ratio 1.4 (1.1-1.8); Alkaline Phosphatase 88 U/L (38-126); Aspartate Amino Transferase 38 U/L (14-36); Bilirubin,Total 0.8 mg/dl (0.2-1.3); Blood Urea Nitrogen 18 mg/dl (7-17); Carbon Dioxide 25 mmol/L (22.0-30.0); Creatinine Clearance Estimated 68 mL/min (50-200); Estimated Glomerular Filt Rate 102 ml/min (>60); GFR (African American) 123 ML/MIN (>60); Globulin 3.2 g/dL (1.3-3.2); Total Protein,Serum 7.6 g/dl (6.3-8.2)
[2019-11-12 11:50] LABS: Calcium 9.6 mg/dl (8.4-10.2); Glucose 115 mg/dl (74-100)
[2019-11-12 11:53] LABS: Bacteria,Urine Trace /lpf; Mucus,Urine Trace /lpf; Squamous Epithelial Cell,Urine Occasional #/hpf (0-5)
[2019-11-12 12:04] LABS: Troponin I < 0.01 ng/ml (0.00-0.034)
[2019-11-12 12:10] LABS: Erythrocyte Sedimentation Rate 16 mm/hr (0-30)
--- NOTE | 2019-11-12 12:23 | CT_ITS ---
PROCEDURE: CT ABDOMEN PELVIS WO CON CLINICAL INDICATION: vomiting Vomiting blood COMPARISON: ABDPELWO CT abdomen pelvis wo con from 01/22/2019 TECHNIQUE: Axial images obtained with sagittal and coronal reformats. All CT scans at the facility use one or more dose reduction, viz: automated exposure control, ma/kV adjustment per patient size (including targeted exams where dose is matched to indication, i.e. head), or iterative reconstruction technique. FINDINGS: LOWER THORAX: There is diffuse thickening of the esophagus consistent with esophagitis either inflammatory or infectious versus neoplasm. There is diffuse coronary artery calcification ABDOMEN & PELVIS: . the liver has a cirrhotic appearance. The gallbladder is distended. The spleen and adrenal glands are unremarkable. Unremarkable appearing pancreas. Vascular calcifications are present in the kidneys There is diffuse motion artifact which obscures fine detail. A Rehman catheter is present. There are rounded calcific densities in the adnexa on both sides. No intestinal obstruction or free air. No evidence of appendicitis. Rehman catheter is present with a small amount air noted in the urinary bladder. Bowel gas pattern is nonspecific with nondistended fluid-filled loops of small bowel in the pelvic region. There are degenerative changes in the hips with subchondral cystic changes of the right femoral head. No acute bony findings. IMPRESSION: 1. Diffuse thickening of the distal esophagus which may be due to inflammatory or infectious esophagitis or neoplasm. 2. Cirrhosis. 3. Distended gallbladder. 4. Other nonacute findings as described above. Dictated by: Lan Guzman MD 11/12/2019 13:23 Electronically signed by Lan Guzman MD in [facility] 11/12/2019 13:23
[2019-11-12 12:33] LABS: Adenovirus,PCR Not Detected (NotDetected); Bordetella Pertussis Not Detected (NotDetected); Chlamydophila Pneumoniae, PCR Not Detected (NotDetected); Coronavirus 229E Not Detected (NotDetected); Coronavirus NL63 Not Detected (NotDetected); Coronavirus OC43 Not Detected (NotDetected); Coronovirus HKU1,PCR Not Detected (NotDetected); Human Metapneumovirus Not Detected (NotDetected); Influenza A, PCR Not Detected (NotDetected); Influenza AH1, 2009 Not Detected (NotDetected); Influenza AH1, PCR Not Detected (NotDetected); Influenza AH3,PCR Not Detected (NotDetected); Influenza B, PCR Not Detected (NotDetected); Mycoplasma Pneumoniae, PCR Not Detected (NotDetected); Parainfluenza 1, PCR Not Detected (NotDetected); Parainfluenza 2, PCR Not Detected (NotDetected); Parainfluenza 3, PCR Not Detected (NotDetected); Parainfluenza 4, PCR Not Detected (NotDetected); Respiratory Syncytial Virus Not Detected (NotDetected); Rhinovirus/Enterovirus Not Detected (NotDetected)
--- NOTE | 2019-11-12 14:45 | [facility].EDGENADL ---
ED Disposition Clinical Impression: UTI (urinary tract infection), GERD (gastroesophageal reflux disease), Nausea & vomiting Disposition: Home, Self-Care Condition on Discharge: Good Instructions: Gastroesophageal Reflux Disease (Alternative Therapy) Additional Instructions: Follow-up with Dr. Mejia at 1 PM on Friday. Prescriptions: Pantoprazole Sodium [Protonix 40mg tablet] 40 mg PO HS 30 Days #30 tab Transmission Status: Pending to [facility] ondansetron HCL [Zofran 4mg Tab*] 4 mg PO TID PRN 3 Days #10 tab PRN Reason: Nausea Transmission Status: Pending to [facility] Referrals: Rodolfo Mejia MD [Primary Care Provider] - - Critical Care Critical Care Time: No Attestation: On 11/12/19, the high probability of a clinically significant, sudden or life threatening deterioration of the following system(s) required my full and direct attention, intervention and personal management. The time I documented below is in addition to time spent performing reported procedures but includes the following listed in this critical care notation. Medical Decision Making - Medical Records Medical records reviewed: Yes: I reviewed the patient's medical records. - Fran Inquiry Pt receiving controlled substance: No Vital Signs: 11/12/19 11:21 Temperature 98.3 F Temperature Source Oral Pulse Rate [Radial] 123 H Respiratory Rate 22 Blood Pressure [Right Arm] 102/63 L Blood Pressure Mean [Right Arm] 76 Blood Pressure Source [Right Arm] Automatic Cuff Blood Pressure Position [Right Arm] Supine 02 Sat by Pulse Oximetry 94 L Oxygen Delivery Method Room Air - Lab Data Lab results reviewed: Yes: I reviewed the patient's lab results. Lab Results 11/12/19 11:39: Stool Occult Blood Negative 11/12/19 11:39: WBC 11.5 H, RBC 4.55, Hgb 14.5, Hct 43.4, MCV 95.4, MCH 31.8 H, MCHC 33.3, RDW 13.7, Plt Count 190, MPV 7.2 L, Neut % (Auto) 77.8, Lymph % (Auto) 15.8, Gordon % (Auto) 3.4, Eos % (Auto) 2.1, Baso % (Auto) 1.0, Neut # (Auto) 9.0 H, Lymph # (Auto) 1.8, Gordon # (Auto) 0.4, Eos # (Auto) 0.3, Baso # (Auto) 0.1 11/12/19 11:39: Sodium 124 L, Potassium 5.0, Chloride 86 L, Carbon Dioxide 25, Anion Gap 18.0 H, BUN 18 H, Creatinine 0.60, Estimated Creat Clear 68, Estimated GFR 102, Est GFR ( Amer) 123, Glucose 115 H, Calcium 9.6, Total Bilirubin 0.8, AST 38 H, ALT 23, Alkaline Phosphatase 88, Troponin I < 0.01, Total Protein 7.6, Albumin 4.4, Globulin 3.2, Albumin/Globulin Ratio 1.4 11/12/19 11:39: Urine Color Yellow, Urine Appearance Clear, Urine pH 6.0, Ur Specific [place] 1.020, Urine Protein Negative, Urine Glucose (UA) Negative, Urine Ketones Negative, Urine Blood Negative, Urine Nitrate Negative, Urine Bilirubin Negative, Urine Urobilinogen 0.2, Ur Leukocyte Esterase Negative, Urine RBC 5-10, Urine WBC 5-10, Ur Squamous Epith Cells Occasional, Urine Bacteria Trace, Urine Mucus Trace 11/12/19 11:39: ESR 16 11/12/19 12:20: Chlamy pneumoniae PCR Not detected, Adenovirus (PCR) Not detected, B. pertussis DNA (PCR) Not detected, Coronavirus OC43 (PCR) Not detected, Coronavirus HKU1 (PCR) Not detected, Coronavirus 229E (PCR) Not detected, Coronavirus NL63 (PCR) Not detected, Human Metapneumovir PCR Not detected, Influenza A (H1) PCR Not detected, Influ A (H1N1/09) PCR Not detected, Influenza A (H3) PCR Not detected, Influenza Type A (PCR) Not detected, Influenza Type B (PCR) Not detected, M. pneumoniae (PCR) Not detected, Parainfluenza 1 (PCR) Not detected, Parainfluenza 2 (PCR) Not detected, Parainfluenza 3 (PCR) Not detected, Parainfluenza 4 (PCR) Not detected, RSV (PCR) Not detected, Entero/Rhino (PCR) Not detected Result diagrams: 11/12/19 11:39 11/12/19 11:39 Orders (Tests/Meds): ED MEDICATIONS Generic Name Dose Route Start Last Admin Trade Name Freq PRN Reason Stop Dose Admin Sodium Chloride 10 ml 04/24/20 14:12 11/12/19 14:14 Sodium Chloride 0.9% 10ml Vial IV 12/12/19 14:11 10 ml NEEDED PRN
[2019-11-12 15:06] VITALS: BP 110/85; PULSE 85; RESP 20; TEMP 36.8; O2SAT 98
[2019-11-14 08:11] LABS: CEA 3.4 ng/mL (0.0-4.7)
== END 2019-11-12 15:08 | disposition home or self-care (01) ==
PROVIDERS: Emergency Provider Family Medicine; PCP Family Medicine
DX: N30.00 Acute cystitis without hematuria (principal); K21.9 Gastro-esophageal reflux disease without esophagitis; J44.9 Chronic obstructive pulmonary disease, unspecified; I50.9 Heart failure, unspecified; E11.9 Type 2 diabetes mellitus without complications; E78.5 Hyperlipidemia, unspecified; Z88.0 Allergy status to penicillin; Z88.2 Allergy status to sulfonamides; Z88.1 Allergy status to other antibiotic agents; Z79.899 Other long term (current) drug therapy
CPT/HCPCS: 71250; 74176; 80053; 81001; 82272; 82378; 84484; 85025; 85651; 87486; 87581; 87633; 87798; 96365; 96375; 96376; 99284; G0328; J2405